=== PATIENT | male | born 1990 | race Caucasian/White ===

== ENCOUNTER 2022-09-20 15:05 | Outpatient (REF) | payer OTHER, SELFPAY ==
[2022-09-20 16:40] LABS: MANUAL DIFF FLAG NO
[2022-09-20 16:42] LABS: Basophils Percent Auto 0.5 % (0-2); Eosinophils Absolute Auto 0.2 X10*3/uL (0.0-0.4); Hemoglobin 16.3 g/dl (14.0-18.0); Imm Gran Abs Auto 0.07 X10*3/uL (0.00-0.03); Imm Gran Pct Auto 1.1 % (0.0-0.4); Lymphocytes Absolute Auto 1.8 X10*3/uL (1.2-4.9); Lymphocytes Percent Auto 26.7 % (20-40); Mean Corpuscular HGB Conc 33.3 g/dl (31.0-36.0); Mean Corpuscular Hemoglobin 29.4 pg (27.0-33.0); Mean Corpuscular Volume 88.4 fL (80.0-98.0); Mean Platelet Volume 10.9 fL (9.4-12.4); Monocytes Absolute Auto 0.5 X10*3/uL (0.1-1.2); Neutrophils Absolute Auto 4.1 x10*3/uL (2.0-8.3); Neutrophils Percent Auto 61.7 % (45-73); Platelet Count 176 X10*3/uL (160-400); Red Blood Count 5.54 X10*6/uL (4.60-5.80); Red Cell Distribution Width 12.7 % (11.0-16.0); White Blood Count 6.6 X10*3/uL (4.8-10.8)
[2022-09-20 16:54] LABS: Appearance Urine Clear; Color Urine Yellow; Glucose Urine UA Negative (Negative); Leukocyte Esterase Urine Negative (Negative); Nitrite Urine Negative (Negative); PH 6.5 (5.0-9.0); Urine Blood Negative (Negative); Urine Ketones Negative (Negative); Urine Protein Negative (Neg-Trace)
[2022-09-20 17:19] LABS: Alanine Aminotransferase 17 U/L (0-40); Albumin Level 4.6 g/dL (3.5-5.0); Alkaline Phosphatase 58 U/L (39-117); Anion Gap 11 (12-20); Aspartate Amino Transferase 15 U/L (5-37); Bilirubin Total 1.1 mg/dL (0.0-1.0); Blood Urea Nitrogen 10 mg/dL (9-16); Calcium 9.4 mg/dL (8.4-10.2); Carbon Dioxide 28 mmol/L (22-29); Chloride 101 mmol/L (96-108); Estimated Glomerular Filt Rate > 60; Glucose Fasting 80 mg/dL (60-99); Potassium 4.4 mmol/L (3.3-5.1); Sodium 136 mmol/L (135-145); TSH reflex Free T4 1.05 uIU/mL (0.32-4.0); Total Protein 7.1 g/dL (6.5-8.0); Uric Acid 6.5 mg/dL (3.4-7.0)
== END 2022-09-20 15:06 | disposition home or self-care (01) ==
LOC: HO.HMGCLDS 15:05
PROVIDERS: PCP Nurse Practitioner Family; Visit Provider Nurse Practitioner Family
DX: Z00.00 Encounter for general adult medical examination without abnormal findings (principal); M10.9 Gout, unspecified
CPT/HCPCS: 36415; 80053; 81003; 84443; 84550; 85025

== ENCOUNTER 2022-11-29 13:05 | Outpatient (REF) | payer OTHER, SELFPAY ==
[2022-11-29 14:28] LABS: Alanine Aminotransferase 18 U/L (0-40); Alkaline Phosphatase 62 U/L (39-117); Anion Gap 15 (12-20); Aspartate Amino Transferase 17 U/L (5-37); Bilirubin Total 1.3 mg/dL (0.0-1.0); Blood Urea Nitrogen 10 mg/dL (9-16); Calcium 9.8 mg/dL (8.4-10.2); Carbon Dioxide 28 mmol/L (22-29); Chloride 100 mmol/L (96-108); Estimated Glomerular Filt Rate > 60; Glucose Random 92 mg/dL (60-115); Potassium 4.2 mmol/L (3.3-5.1); Sodium 139 mmol/L (135-145); Total Protein 7.7 g/dL (6.5-8.0); Uric Acid 6.5 mg/dL (3.4-7.0)
== END 2022-11-29 13:06 | disposition home or self-care (01) ==
LOC: HO.HMGCLDS 13:05
PROVIDERS: PCP Nurse Practitioner Family; Visit Provider Nurse Practitioner Family
DX: M10.9 Gout, unspecified (principal)
CPT/HCPCS: 36415; 80053; 84550

== ENCOUNTER 2023-05-14 09:57 | Outpatient (AMB) | payer OTHER, SELFPAY ==
[2023-05-14 10:02] VITALS: BP 104/60; PULSE 58; RESP 16; TEMP 36.3; O2SAT 98; BMI 22.9
--- NOTE | 2023-05-14 10:02 | A.OFFVIS_ITS ---
Intake Vital Signs 05/14/23 10:02 Height 6 ft 4 in Weight 188 lb BMI 22.9 BP 104/60 Blood Pressure Location Rt brachial Position Sitting Respiration 16 Pulse 58 Pulse Source Pulse Oximeter Temp 97.3 F Temp Source Skin Pulse Oximetry (%) 98 Oxygen Delivery Method Room Air Intake Visit Reasons: Gout Intake Note: patient would like to obtain paperwork for Flight waiver. Allergies No Known Allergies Allergy (Verified 05/14/23 10:07) Medication List - Last Reconciled 05/14/23 by Brian Leon MD allopurinol (Zyloprim) 200 mg (2 x 100 mg) PO DAILY 30 days colchicine 0.6 mg PO DAILY PRN 5 days HPI HPI Comments History of Present Illness Details This is a 32-year-old male with a past medical history of gout who presents for gout evaluation. He is also requesting a flight Waiver. He had his 1st attack of gout back in July of 2019 after ankle pain and swelling which was treated with steroids. His uric acid levels were found to be elevated. He was started on allopurinol in 2020 and since then has not had any gout flares. There is no known family history of gout. He denies any history of kidney stones. Today patient feels great and denies any joint pain or swe lling. [facility] Social History Housing: Apartment Patient Tobacco Use Status: Never used Tobacco e-Cigarette/Vaping Use: Never Used Second Hand Smoke Exposure: No service: Yes Current occupational status: employed Current occupation: [employer] Current occupational exposures/hazards: Yes Cognitive needs: No Hearing needs: No Vision needs: No Review of Systems Const Reports no additional complaints Musc Denies arthralgias, Denies joint swelling, Denies limited range of motion and Denies stiffness Physical Exam Vital Signs: Last Vital Signs Temp 97.3 F 05/14/23 10:02 Pulse 58 05/14/23 10:02 Resp 16 05/14/23 10:02 BP 104/60 05/14/23 10:02 Pulse Ox 98 05/14/23 10:02 Oxygen Delivery Method Room Air 05/14/23 10:02 BMI result Body Mass Index 22.9 Const General: cooperative, healthy appearing and comfortable Nutritional Appearance: average body habitus Orientation/consciousness: patient oriented x3 Limitations: no limitations HEENT Other: No tophi noted on ears Head: Yes normocephalic and Yes atraumatic Mouth: moist mucous membranes Resp Effort & Inspection: normal respiratory effort and able to speak in complete sentences Cardio Rate: regular rate Rhythm: regular rhythm Neuro General: patient oriented x3 Extrem Other: No active synovitis No tophi noted on joints No swollen or painful joints. Normal range of motion of hands, elbows, shoulders, ankles, feet, knees Assessment & Plan Assessment & Plan (1) Gout: Code(s): M10.9 - Gout, unspecified Qualifiers: Gout site: ankle Gout etiology: idiopathic Chronicity: chronic Laterality: unspecified laterality Presence of tophus: without tophus Qualified Code(s): M1A.0790 - Idiopathic chronic gout, unspecified ankle and foot, without tophus (tophi) Plan: This is a 32-year-old male with a past medical history of gout who presents for gout evaluation. First attack of gout in 2018 which was treated with steroids. He was started on allopurinol in 2020 with no subsequent gout flares. Upon evaluation today patient has no swollen or tender joints. He is currently on allopurinol 200 mg daily and his uric acid level is 6.5 which is barely above target (<6.0 mg/dL) he has not had to use any colchicine for years. Continue allopurinol 200 mg daily Follow-up in 1 year Coding Level of Care Code New Pt Level 3 (29010) Diagnoses Gout M1A.0790 Gout site: ankle Gout etiology: idiopathic Chronicity: chronic Laterality: unspecified laterality Presence of tophus: without tophus
== END 2023-05-14 10:29 | disposition home or self-care (01) ==
PROVIDERS: PCP Nurse Practitioner Family; Referring Provider Nurse Practitioner Family; Visit Provider Student in an Organized Health Care Education/Training Program
DX: M1A.0790 Idiopathic chronic gout, unspecified ankle and foot, without tophus (tophi) (principal)
CPT/HCPCS: 99203

== ENCOUNTER → 2023-05-14 09:57 | Outpatient (BNVA) | payer OTHER, SELFPAY | PROVIDERS: PCP Nurse Practitioner Family; Referring Provider Nurse Practitioner Family; Visit Provider Student in an Organized Health Care Education/Training Program | DX: M1A.0790 Idiopathic chronic gout, unspecified ankle and foot, without tophus (tophi) (principal); Z79.899 Other long term (current) drug therapy | CPT/HCPCS: 99202 ==

== ENCOUNTER 2024-03-20 13:01 | Outpatient (AMB) | payer OTHER, SELFPAY ==
[2024-03-20 13:10] VITALS: BP 120/80; PULSE 97; TEMP 36.4; O2SAT 95; BMI 21.9
--- NOTE | 2024-03-20 13:10 | MHC.OFFWIV ---
Intake Vital Signs 03/20/24 13:10 Height 6 ft 4 in Weight 180 lb BMI 21.9 BP 120/80 Pulse 97 Pulse Source Pulse Oximeter Temp 97.6 F Temp Source Temporal Artery Scan Pulse Oximetry (%) 95 Oxygen Delivery Method Room Air Intake Visit Reasons: Sore throat head chest congestion Intake Note: pt is here today for sore throat head chest congestion started saturday Patient Tobacco Use Status: Never used Tobacco Allergies No Known Allergies Allergy (Verified 03/20/24 14:02) Do you need a note to return to daycare/school/sports/work: Yes HPI HPI Comments History of Present Illness Details Saturday ongoing symptoms He said ST has improved Ongoing cough, congestion, phlegm production + sinus congestion Slight ear pain No sick contacts Has tried OTC meds like dayquil, nyquil, tylenol Patient said subjective fever/chills + decreased appetite PFSH Social History Housing: Apartment Patient Tobacco Use Status: Never used Tobacco e-Cigarette/Vaping Use: Never Used Second Hand Smoke Exposure: No service: Yes Current occupational status: employed Current occupation: [employer] Current occupational exposures/hazards: Yes Cognitive needs: No Hearing needs: No Vision needs: No Review of Systems Const Reports chills and Reports fever(s) ENT Reports otalgia, Denies facial pain, Reports nasal discharge and Reports sore throat Card Denies chest pain and Denies dyspnea Resp Reports chest congestion, Reports cough and Denies dyspnea Physical Exam Vital Signs: Last Vital Signs Temp 97.6 F 03/20/24 13:10 Pulse 97 03/20/24 13:10 BP 120/80 03/20/24 13:10 Pulse Ox 95 03/20/24 13:10 Oxygen Delivery Method Room Air 03/20/24 13:10 BMI result Body Mass Index 21.9 General: Non-toxic, NAD. Speaking full sentences. Skin: Warm dry throughout Eye: EOMI HENT: Airway patent. Uvula midline. minimal pharyngeal erythema without exudates or edema. 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 Bilateral canals clear. TM non-erythematous, non-bulging. No TM perforation or hemotympanum noted. Respiratory: CTA bilaterally. No wheezes, rales or rhonchi Cardiac: RRR. No murmur MSK: Full ROM extremities. Neurology: A/O. No aphasia or facial droop. Gait without abnormality Psych: Good mood and affect Assessment & Plan Assessment & Plan (1) Upper respiratory infection: Code(s): J06.9 - Acute upper respiratory infection, unspecified Qualifiers: URI type: unspecified viral URI Qualified Code(s): J06.9 - Acute upper respiratory infection, unspecified Plan: Patient seen and evaluated. Lungs CTA Strep negative Discussed most likely viral URI and he will be prescribed tessalon. Discussed bacterial infection symptoms such as worsening cough, facial pressure, fever and to call back for antibiotic such as azithromycin if persistent F/U with PCP if needed Patient gave verbal understanding and had no additional questions or concerns at time of discharge All questions answered Coding Level of Care Code Est Pt Level 3 (28254) Diagnoses Viral upper respiratory tract infection J06.9 URI type: unspecified viral URI
== END 2024-03-20 15:16 | disposition home or self-care (01) ==
PROVIDERS: PCP Nurse Practitioner Family; Visit Provider Physician Assistant
DX: J06.9 Acute upper respiratory infection, unspecified (principal)
CPT/HCPCS: 99213

== ENCOUNTER 2024-05-14 10:26 | Outpatient (AMB) | payer OTHER, SELFPAY ==
--- NOTE | 2024-05-14 10:43 | MHC.OFFVIS ---
Vital Signs 05/14/24 10:47 Height 6 ft 4 in Weight 191 lb 5.78 oz BMI 23.3 BP 130/78 Blood Pressure Location Rt brachial Position Sitting Pulse 69 Pulse Source Pulse Oximeter Pulse Oximetry (%) 98 Oxygen Delivery Method Room Air Intake Visit Reasons: gout/cm Intake Note: Patient presents for Gout. Allergies No Known Allergies Allergy (Verified 05/14/24 10:46) Medication List - Last Reconciled 05/14/24 by Brian Leon MD allopurinol (Zyloprim) 200 mg (2 x 100 mg) PO DAILY 30 days colchicine 0.6 mg PO DAILY PRN 5 days HPI Comments Details: 33-year-old male with gout returns for follow-up. He states that he is doing very well overall. No musculoskeletal complaints. No gout flare-ups years. Has not used colchicine in years. He remains on allopurinol 200 mg daily but ran out 2 weeks ago. Initial history: This is a 32-year-old male with a past medical history of gout who presents for gout evaluation. He is also requesting a flight Waiver. He had his 1st attack of gout back in July of 2019 after ankle pain and swelling which was treated with steroids. His uric acid levels were found to be elevated. He was started on allopurinol in 2020 and since then has not had any gout flares. There is no known family history of gout. He denies any history of kidney stones. Today patient feels great and denies any joint pain or swelling. [facility] Social History Housing: Apartment Patient Tobacco Use Status: Never used Tobacco e-Cigarette/Vaping Use: Never Used Second Hand Smoke Exposure: No service: Yes Current occupational status: employed Current occupation: [employer] Current occupational exposures/hazards: Yes Cognitive needs: No Hearing needs: No Vision needs: No Review of Systems Const Reports no additional complaints Musc Denies arthralgias, Denies joint swelling, Denies limited range of motion and Denies stiffness Physical Exam Vital Signs: Last Vital Signs Pulse 69 05/14/24 10:47 BP 130/78 05/14/24 10:47 Pulse Ox 98 05/14/24 10:47 Oxygen Delivery Method Room Air 05/14/24 10:47 BMI result Body Mass Index 23.3 Const General: cooperative, healthy appearing and comfortable Nutritional Appearance: average body habitus Orientation/consciousness: patient oriented x3 Limitations: no limitations HEENT Other: No tophi noted on ears Head: Yes normocephalic and Yes atraumatic Mouth: moist mucous membranes Resp Effort & Inspection: normal respiratory effort and able to speak in complete sentences Cardio Rate: regular rate Rhythm: regular rhythm Neuro General: patient oriented x3 Extrem Other: No active synovitis No tophi noted on joints No swollen or painful joints. Normal range of motion of hands, elbows, shoulders, ankles, feet, knees Assessment & Plan Assessment & Plan (1) Gout: Comment: First attack of gout in 2019 which was treated with steroids. He was started on allopurinol in 2020 with no subsequent gout flares. Code(s): M10.9 - Gout, unspecified Category: Medical Qualifiers: Gout site: ankle Gout etiology: idiopathic Chronicity: chronic Laterality: unspecified laterality Presence of tophus: without tophus Qualified Code(s): M1A.0790 - Idiopathic chronic gout, unspecified ankle and foot, without tophus (tophi) Plan: This is a 33-year-old male with gout who presents for follow-up. Patient is doing very well on allopurinol 200 mg daily. No gout flare-ups since last visit. Has not used colchicine in years. Patient however ran out of his allopurinol two weeks ago. I refilled his allopurinol. Advised patient to do blood work in about 1 month time. If uric acid is elevated, will consider increasing his allopurinol to 300 mg daily Labs in about 1 month Labs before next visit in 1 year Plan I spent 15 minutes reviewing patient's chart, evaluating patient, ordering diagnostic workup, counseling patient and documenting in the chart Orders: Orders Basic Metabolic Panel 1 Month M1A.0790 - Idiopathic chronic gout, unspecified ankle and foot, without tophus (tophi) Uric Acid 1 Month M1A.0790 - Idiopathic chronic gout, unspecified ankle and foot, without tophus (tophi) Basic Metabolic Panel 1 Year M1A.0790 - Idiopathic chronic gout, unspecified ankle and foot, without tophus (tophi) Uric Acid 1 Year M1A.0790 - Idiopathic chronic gout, unspecified ankle and foot, without tophus (tophi) Medications: Refilled allopurinol (Zyloprim) 200 mg (2 x 100 mg) PO DAILY 30 days 60 tabs 5RF Coding Level of Care Code Est Pt Level 3 (04273) Diagnoses 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
[2024-05-14 10:47] VITALS: BP 130/78; PULSE 69; O2SAT 98; BMI 23.3
== END 2024-05-14 10:58 | disposition home or self-care (01) ==
PROVIDERS: PCP Nurse Practitioner Family; Visit Provider Student in an Organized Health Care Education/Training Program
DX: M1A.0790 Idiopathic chronic gout, unspecified ankle and foot, without tophus (tophi) (principal)
CPT/HCPCS: 99213

== ENCOUNTER → 2024-05-14 10:26 | Outpatient (BNVA) | payer OTHER, SELFPAY | PROVIDERS: PCP Nurse Practitioner Family; Visit Provider Student in an Organized Health Care Education/Training Program | DX: M1A.0790 Idiopathic chronic gout, unspecified ankle and foot, without tophus (tophi) (principal); Z56.82 Military deployment status | CPT/HCPCS: 99212 ==

== ENCOUNTER 2024-12-29 11:00 | Outpatient (AMB) | payer OTHER, SELFPAY ==
[2024-12-29 11:03] VITALS: BP 118/78; PULSE 78; TEMP 36.6; O2SAT 97; BMI 22.4
--- NOTE | 2024-12-29 11:03 | MHC.PC.OV ---
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 Accompanied by: Self / Same As Patient Allergies No Known Allergies Allergy (Verified 12/29/24 11:28) Medication List - Last Reconciled 12/29/24 by ELOISA RichP- allopurinol (Zyloprim) 200 mg (2 x 100 mg) PO DAILY 30 days colchicine 0.6 mg PO DAILY PRN 5 days Tobacco use date assessed: 12/29/24 Dental Screening Dental Screen Date: 12/29/24 Did you have a dental visit in the last 12 months?: Yes Did you have a dental problem in the last 6 months where you did not have access to dental care?: No Was dental information given to patient?: Patient has dentist HPI ANNUAL PE HPI Details History of Present Illness The patient is a 34-year-old male presenting with a wellness visit. He has a confirmed history of gout, currently managed with allopurinol. Due to insurance complications, he paused the medication for a month but reported no gout flare-ups during that time. He is back on his regular dosage. Additionally, he observed a bump in his rectal area with a possible. Denied any pain with defication, blood in stool, pain with defication. There is an absence of any concerning symptoms such as suicidal thoughts or gastrointestinal issues alongside this condition. Health Maintenance Social History Review of Systems - General: Denies any chest pain - Respiratory: Denies shortness of breath - Gastrointestinal: Denies nausea, vomiting, diarrhea, constipation - Psychiatric: Denies suicidal ideation and homicidal ideation Physical Exam General: Cooperative, healthy appearing, comfortable, no acute distress and well developed Orientation: Patient oriented x3 Limitations: No limitations Head: Normal to inspection, several moles noted on scalp, no irregular shaped or dark colored moles Ears: Hearing grossly normal bilaterally Nose: Normal external nose present Face and sinus: Normal facial exam Eyes: Appearance normal, both eyes and all related structures Neck: Normal visual inspection and Yes full ROM Respiratory: Normal respiratory effort and able to speak in complete sentences. Clear to auscultation bilaterally Cardiovascular: Regular rate and rhythm. Normal S1 and S2 GI: Normal to inspection. Soft to palpation and nontender. Linear white marking noted at inferior/6 o'clock position in rectal region, question anal fissure, but no bumps, lesions, signs of hemorrhoid activity. Skin: No rashes or lesions noted, few scattered singular moles noted on back Neuro: Patient oriented x3 Extremities: Normal to inspection Results Plan Monitoring of the anal fissure will continue, noting the absence of symptoms such as pain and bleeding. The patient will maintain his allopurinol regimen to manage gout. Vigilance regarding skin conditions, particularly the monitoring of moles, will be advised. A follow-up appointment is planned for one year to review these matters comprehensively. Discussion Notes I discussed with the patient the evaluation of the suspected anal fissure, emphasizing that, given the absence of symptoms, I would recommend continued observation. The management of gout, including the resumption of allopurinol, was reviewed, ensuring the patient understands the importance of consistent medication adherence. Furthermore, I instructed him to observe any changes in his moles and to bring any new developments to my attention. Arrangements for a follow-up visit in a year were made to reassess the current management plan and skin condition. Patient Instructions - Continue taking allopurinol as prescribed. - Observe for any changes in moles on the scalp and back. - Monitor the rectal area for any new symptoms such as pain or bleeding. - Return for follow-up in one year or sooner if new symptoms develop. [facility] Surgical History No pertinent past surgical history Social History Housing: Apartment Patient Tobacco Use Status: Never used Tobacco e-Cigarette/Vaping Use: Never Used Second Hand Smoke Exposure: No service: Yes Current occupational status: employed Current occupation: [employer] Current occupational exposures/hazards: Yes Cognitive needs: No Hearing needs: No Vision needs: No Questionnaire PHQ-9 Over the last 2 weeks, how often have you been bothered by any of the following problems? 1. Little interest or pleasure in doing things: not at all 2. Feeling down, depressed, or hopeless: not at all 3. Trouble falling or staying asleep, or sleeping too much: not at all 4. Feeling tired or having little energy: not at all 5. Poor appetite or overeating: not at all 6. Feeling bad about yourself - or that you are a failure or have let yourself or your family down: not at all 7. Trouble concentrating on things, such as reading the newspaper or watching television: not at all 8. Moving or speaking so slowly that other people could have noticed. Or the opposite - being so fidgety or restless that you have been moving around a lot more than usual: not at all 9. Thoughts that you would be better off or of hurting yourself in some way: not at all Total score: 0 Depression Screening Interpretation: Negative Depression Screening Done: Yes [id number] - PHQ-9 Billing: Yes Source: Developed by Drs. Frederick Burgess, Merced Gonzalez, Indra Gerber and colleagues, with an educational kishan from [employer]. Thrive Questionnaire Date Thrive assessed: 12/29/24 I am a: Patient What is your living situation today?: I have a steady place to live Within the past 12 months, did the food you bought not last and you didn't have the money to get more?: Never true Within the past 12 months, did you worry whether your food would run out before you got money to buy more?: Never true Do you have trouble paying for medicines?: No Do you have trouble getting transportation to medical appointments?: No Do you have trouble paying your heating and electricity bill?: No Do you have trouble taking care of your child, family member or friend?: No Do you have trouble with day-to-day activities such as bathing, preparing meals, shopping, managing finances, etc.?: No Are you currently unemployed and looking for a job?: No Are you interested in more education?: No Please select the resources that you would like help with: None Currently or been in a relationship where the following occur: No concerns reported THRIVE Score: 0 AUDIT C Alcohol Use Questionnaire (AUDIT-C) 1. How often do you have a drink containing alcohol?: Never 3. How often do you have six or more drinks on one occasion?: Never Total Score: 0 Score Reviewed/Action Taken: Yes LULY-7 AMB Questionnaire LULY-7 Date LULY - 7 assessed: 12/29/24 Feeling nervous, anxious, or on edge: 0 = Not at all Not being able to stop or control worryin = Not at all Worrying too much about different things: 0 = Not at all Trouble relaxin = Not at all Being so restless that it is hard to sit still: 0 = Not at all Becoming easily annoyed or irritable: 0 = Not at all Feeling afraid as if something awful might happen: 0 = Not at all Total LULY-7 score (0-4 normal; 5-9 mild; 10-14 moderate; 15-21 severe): 0 Source: Developed by Drs. Frederick Burgess, Merced Gonzalez, Indra Gerber and colleagues, with an educational kishan from [employer]. LULY-7 Assessment Billing LULY-7 Assessment Tool: LULY-7 Assessment 46728 Physical exam (Primary Care) Vital Signs: Last Vital Signs Temp 97.8 F 12/29/24 11:03 Pulse 78 12/29/24 11:03 BP 118/78 12/29/24 11:03 Pulse Ox 97 12/29/24 11:03 Oxygen Delivery Method Room Air 12/29/24 11:03 BMI result Body Mass Index 22.4 Tobacco/Smoking Status: Tobacco use Status Tobacco use date assessed 12/29/24 12/29/24 11:04 Patient Tobacco Use Status Never used Tobacco 12/29/24 11:04 e-Cigarette/Vaping Use Never Used 12/29/24 11:04 PHQ-9: PHQ-9 Score PHQ-9: Total score 0 12/29/24 11:10 Depression Screening Interpretation: Negative Thrive Assessment: Date of Thrive Assessment Date Thrive assessed 12/29/24 12/29/24 11:04 Currently or been in a relationship where the following occur: No concerns reported Coding Level of Care Code Est Pt Prev Care 18-39y(24790) Diagnoses Physical exam Z00.00 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 He was started on allopurinol in 2020 with no subsequent gout flares. Code(s): M10.9 - Gout, unspecified Category: Medical Qualifiers: Chronicity: chronic Gout etiology: idiopathic Gout site: ankle Laterality: unspecified laterality Presence of tophus: without tophus Qualified Code(s): M1A.0790 - Idiopathic chronic gout, unspecified ankle and foot, without tophus (tophi) (3) Anal fissure: Code(s): K60.2 - Anal fissure, unspecified Category: Medical Plan . Orders: Orders Comprehensive Cooper. Panel Fast Today Z00.00 - Encounter for general adult medical examination without abnormal findings Lipid Panel Today Z00.00 - Encounter for general adult medical examination without abnormal findings Uric Acid Today M1A.0790 - Idiopathic chronic gout, unspecified ankle and foot, without tophus (tophi) Complete Blood Count Auto Diff Today Z00.00 - Encounter for general adult medical examination without abnormal findings TSH reflex Free T4 Today Z00.00 - Encounter for general adult medical examination without abnormal findings UA CC w/rflx Micro + Cult Today Z00.00 - Encounter for general adult medical examination without abnormal findings
--- OUTSIDE RECORDS SUMMARY | 2024-12-29 13:34 | XMS_ITS | Continuity of Care Document ---
Author Name [facility] Organization [facility] Care Team Providers Care Yoke Presser Name Role Phone [facility] Unavailable Unavailable Problems Combined list of problems from Department of Defense and Veterans Affairs facilities. It does not include entries that were removed or entered in error. Problem Status Onset Date Problem Type Date of Resolution Comme nts Source closed fracture of carpal bone(s) scaphoid Active Condition [facility] Allergies, Adverse Reactions, Alerts Combined list of allergies from Department of Defense and Veterans Affairs facilities. It does not include entries that were removed or entered in error. Substance Category Reaction Severity Reaction type Status Date Reported Comments Source No Known Allergies Drug allergy (disorder) active 09/09/2014 [facility] [place] [address] Immunizations Combined list of available immunizations from the Department of Defense and Veterans Affairs facilities. Immunization Series Date Given Administered By Site Reaction Lot Number CVX Code Drug Product Assurance Engineer Status Comments Source typhoid vaccine, parenteral 2022 KAVYA Sim mariella, left (delt oid) [id number] sanofi pasteur complet ed typhoid vaccine, parentera l 08/21/23 Given [id number]-[id number] 39 AMDS influenza, injectable, quadrivalent- pf 2021 [id number] 150 GlaxoSmithKli ne complet ed influenza , injectabl e, quadrival ent-pf 08/25/22 Given Ambulat ory Pharmac y COVID Vaccine Pfizer 2020 [id number] PFIZER complet ed COVID Vaccine Pfizer 09/24/21 Given Ambulat ory Pharmac y influenza, injectable, quadrivalent- pf 2020 [id number] 150 GlaxoSmithKli ne complet ed influenza , injectabl e, quadrival ent-pf 09/24/21 Given Ambulat ory Pharmac y typhoid Vi capsular polysaccharid e vac 2020 [id number] 101 sanofi pasteur complet ed typhoid Vi capsular polysacch aride vac 07/23/21 Given Ambulat ory Pharmac y COVID Vaccine Moderna 2020 [id number] complet ed COVID Vaccine Moderna 12/25/20 Given Ambulat ory Pharmac y COVID Vaccine Moderna 2020 [id number] complet ed COVID Vaccine Moderna 11/15/20 Given Ambulat ory Pharmac y influenza virus vaccine, inactivated 2019 88 Seqirus complet ed influenza virus vaccine, inactivat ed 09/27/20 Given Ambulat ory Pharmac y influenza, seasonal, injectable 2019 [id number] Seqirus complet ed influenza , seasonal, injectabl e 09/27/20 Given Ambulat ory Pharmac y Influenza, injectable, MDCK, preservative free, quadrivalent 2019 [id number], () Not Given Influenza , injectabl e, MDCK, preservat daylin free, quadrival ent DoD influenza, injectable, quadrivalent- pf 2018 [id number] 150 Seqirus complet ed influenza , injectabl e, quadrival ent-pf 08/27/19 Given Ambulat ory Pharmac y meningococcal A,C,Y,W-135 (MCV4P) 2018 [id number] 114 sanofi pasteur complet ed meningoco ccal A,C,Y,W-1 35 (MCV4P) 08/27/19 Given Ambulat ory Pharmac y typhoid Vi capsular polysaccharid e vac 2018 [id number] 101 sanofi pasteur complet ed typhoid Vi capsular polysacch aride vac 08/21/19 Given Ambulat ory Pharmac y influenza, injectable, quadrivalent- pf 2017 [id number] 150 Seqirus complet ed influenza , injectabl e, quadrival ent-pf 08/11/18 Given Ambulat ory Pharmac y influenza virus vaccine, inactivated 2016 [id number] 88 Seqirus complet ed influenza virus vaccine, inactivat ed 07/13/17 Given Ambulat ory Pharmac y typhoid Vi capsular polysaccharid e vac 2016 [id number] 101 sanofi pasteur complet ed typhoid Vi capsular polysacch aride vac 07/13/17 Given Ambulat ory Pharmac y influenza, seasonal, injectable 2015 [id number] 141 [facility] influenza , seasonal, injectabl e 08/25/16 Given Ambulat ory Pharmac y influenza, seasonal, injectable-pf 2014 [id number] 140 CSL Behring complet ed influenza , seasonal, injectabl e-pf 08/11/15 Given Ambulat ory Pharmac y typhoid Vi capsular polysaccharid e vac 2014 [id number] 101 sanofi pasteur complet ed typhoid Vi capsular polysacch aride vac 07/30/15 Given Ambulat ory Pharmac y yellow fever vaccine 2014 [id number] sanofi pasteur complet ed yellow fever vaccine 07/30/15 Given Ambulat ory Pharmac y hepatitis A-hepatitis B vaccine 2014 [id number] 104 GlaxoSmithKli ne complet ed hepatitis A-hepatit is B vaccine 07/01/15 Given Ambulat ory Pharmac y hepatitis A-hepatitis B vaccine 2014 [id number] 104 GlaxoSmithKli ne complet ed hepatitis A-hepatit is B vaccine 07/01/15 Given Ambulat ory Pharmac y hepatitis A-hepatitis B vaccine 2014 [id number] 104 GlaxoSmithKli ne complet ed hepatitis A-hepatit is B vaccine 10/25/14 Given Ambulat ory Pharmac y hepatitis A and hepatitis B vaccine 1 2014 [id number] 104 SmithKline (SKB) complet ed hepatitis A and hepatitis B vaccine DoD hepatitis A-hepatitis B vaccine 2013 [id number] 104 GlaxoSmithKli ne complet ed hepatitis A-hepatit is B vaccine 09/08/14 Given Ambulat ory Pharmac y hepatitis A and hepatitis B vaccine 1 2013 [id number] 104 SmithKline (SKB) complet ed hepatitis A and hepatitis B vaccine DoD tuberculin purified protein derivative 2013 [id number] 96 sanofi pasteur complet ed tuberculi n purified protein derivativ e 09/03/14 Given Ambulat ory Pharmac y adenovirus vaccine, live 2013 [id number] 143 Teva Pharmaceutica ls complet ed adenoviru s vaccine, live 09/03/14 Given Ambulat ory Pharmac y influenza, seasonal, injectable-pf 2013 [id number] 140 Novartis Pharmaceutica ls complet ed influenza , seasonal, injectabl e-pf 09/03/14 Given Ambulat ory Pharmac y tetanus, diphtheria, acellular pertu is 2013 [id number] 115 GlaxoSmithKli ne complet ed tetanus, diphtheri a, acellular pertussis 09/03/14 Given Ambulat ory Pharmac y meningococcal A,C,Y,W-135 (MCV4P) 2013 [id number] 114 sanofi pasteur complet ed meningoco ccal A,C,Y,W-1 35 (MCV4P) 09/03/14 Given Ambulat ory Pharmac y poliovirus vaccine, inactivated 2013 [id number] 10 sanofi pasteur complet ed polioviru s vaccine, inactivat ed 09/03/14 Given Ambulat ory Pharmac y measles virus vaccine 0 2013 05 () Not Given measles virus vaccine DoD rubella virus vaccine 0 2013 06 () Not Given rubella virus vaccine DoD mumps virus vaccine 0 2013 07 () Not Given mumps virus vaccine DoD poliovirus vaccine, inactivated 1 2013 [id number] 10 Sanofi Pasteur (PMC) complet ed polioviru s vaccine, inactivat ed DoD varicella virus vaccine 0 2013 21 () Not Given varicella virus vaccine DoD meningococcal polysaccharid e (groups A, C, Y and W-135) diphtheria toxoid conjugate vaccine (MCV4P) 1 2013 [id number] 114 Sanofi Pasteur (PMC) complet ed meningoco ccal polysacch aride (groups A, C, Y and W-135) diphtheri a toxoid conjugate vaccine (MCV4P) DoD tetanus toxoid, reduced diphtheria toxoid, and acellular pertu is vaccine, adsorbed 1 2013 [id number] 115 SmithKline (SKB) complet ed tetanus toxoid, reduced diphtheri a toxoid, and acellular pertussis vaccine, adsorbed DoD Influenza, seasonal, injectable, preservative free 1 2013 [id number] 140 Novartis Pharmaceutica l Katie. (NOV) complet ed Influenza , seasonal, injectabl e, preservat daylin free DoD Adenovirus, type 4 and type 7, live, oral 1 2013 [id number] 7 143 [employer] [facility] (BRR) complet ed Adenoviru s, type 4 and type 7, live, oral DoD Results Combined list of recent chemistry, hematology and other laboratory results from Department of Defense and Veterans Affairs, ranging from 15 months to all on record, depending upon the facility. Order Name Results Value Reference Range Date Interpretation Specimen Comments Source Infectiou s Disease HIV-1/O/2 Non-Reac tive 1 (08/22/24 1:41 PM) 08/22 N Interpretiv e Data: INTERPRETAT ION: This method is a screening procedure for the detection of HIV p24 Antigen and Antibodies to HIV-1, including Group O, and/or HIV-2. NON-REACTIV E: HIV-1 antigen and HIV-1 / HIV-2 antibodies were not detected. No laboratory evidence of HIV infection. A negative test result does not exclude the possibility of exposure to or infection with HIV. HIV antibodies and/or p24 antigen may be undetectabl e in some stages of the infection and in some clinical conditions. If acute HIV infection is suspected, consider submitting another specimen to a reference laboratory for HIV-1 RNA. SCREEN REACTIVE - CONFIRMATIO N TO FOLLOW: Possible presence of HIV-1antibo dies, HIV-2 antibodies and/or HIV-1 p24 antigen. Specimen will reflex to the confirmatio n testing that fulfills the Center for Disease Control and Prevention' s HIV diagnostic algorithm. Refer to [facility] Lab Guide for additional information : [email or web address] x Testing performed by Maikol chamberlain 5600A-U MapHazardlySAM EPILAB Miscellan eous Sendouts Repository Sample Received (08/22/24 1:41 PM) 08/22 N 5600A-U SAFSAM EPILAB Encounters Combined list of: 1) Encounters from Department of Veterans Affairs facilities going backup to the last 18 months, not all VA inpatient encounters are included; 2) Encounters from the Department of Defense facilities going backup to 280 months. Location Location Details Encounter Type Encounter Number Reason For Visit Attending Provider ADM Date DC Date Status Disposition Source [facility] [place] [address](Opt ometry Clinic [facility]) OUTPATIENT [id number] MARY VILLEGAS 09/08 Released w/o Limitations [facility] [place] [address](O ptometr y Clinic [facility]) [facility] [place] [address]([facility]ly [facility]) OUTPATIENT [id number] Notes Entered by: Basilio SANDERS 09 Sep 2014 0710 ------- ------- ------- ------- -- Strep Prophyl axis ADIN SANDERS 09/09 Released w/o Limitations [facility] [place] [address]([facility], [place] [address]([facility], [facility] OUTPATIENT [id number] [facility] Nutriti on EV Ramires 11/03 Released w/o Limitations [facility] [place] [address](N utritio nal Medicin e, [facility]) [facility] [place] [address]([facility] Medicine [facility]) OUTPATIENT [id number] R wrist pain x 1 week KIKA ANDERSON 03/09 Released w/o Limitations [place] [address] [place] [address](Or hotic Svcs, [facility]) OUTPATIENT [id number] GAY OAKLEY 03/09 Released w/o Limitations [facility] [place] [address](O rthotic Svcs, [facility]) [facility] [place] [address]([facility]) OUTPATIENT [id number] follow up AURA SMALL 03/21 Released with Work/Duty Limitations [facility] [place] [address]([facility] [place] [address](Ort hopedics, [facility]) TELE CONSULT [id number] ZOE TIRADO 03/24 [facility] [place] [address](O rthoped ics, [facility]) [facility] [place] [address](Ort hopedics, [facility]) OUTPATIENT [id number] CLOSED FRACTUR E OF CARPAL BONE(S) - SCAPHOI D; okd per Moise [id number] CHARLEEN MILLER 03/25 Released with Work/Duty Limitations [facility] [place] [address](O rthoped [facility], [facility]) [facility] [place] [address]([facility]) OUTPATIENT [id number] Notes Entered by: SUHAIL LOUIS 25 Mar 2015 1027 ------- ------- ------- ------- -- follow up from lena powell JODIE K 03/25 Released with Work/Duty Limitations [facility] [place] [address]([facility] Flight Medicin e Dom, [facility] d) [place] [address]([facility], [facility]) TELE CONSULT [id number] Notes Entered by: ALPESH BENNETT 31 Mar 2015 1529 ------- ------- ------- ------- -- SrMsgt. Izzy Duran, MED POC wants to know why CHARLEEN MILLER 03/31 [facility] [place] [address](O rthoped [facility], [facility]) 0310C [address] [employer] [employer] Between Visit [id number] 07/07 Discharge Disposition: Home or Self Care 0C--C-t h [employer] [employer] 8344R-439 AMDS Care Not Rendered [id number] 08/22 Discharge Disposition: Home or Self Care 8344R-4 39 AMDS 8344R-439 AMDS Outpatient [id number] EDMUND JOELLE 08/22 Discharge Disposition: Home or Self Care 8344R-4 39 AMDS 8344R-439 AMDS Between Visit [id number] 11/03 Discharge Disposition: Home or Self Care 8344R-4 39 AMDS Procedures Combined list of: 1) Procedures from Department of Veterans Affairs facilities going back up to thelast 18 months, not all VA non-surgical procedures are included; 2) All procedures from the Department of Defense facilities. Procedure Procedure Type Code Date Perfomer Comments Sourlm e No data available for this section Ambul[facility] ry Pharmacy Special casting material (e.g., fibergla ) 03/25/20 15 CHARLEEN MADRID Orthopedic Casting Long Arm Orthopedic Casting Long Arm 98462 03/25/20 15 CHARLEEN MADRID thumb spica cast [facility] Wrist hand orthosis, wrist extension control cock-up, non molded, prefabricated, [id number] 03/09/20 15 GAY OAKLEY [facility] Crime Scene Investigator Educ Orthotics Training Each Additional 15 Minutes 03/09/20 15 GAY OAKLEY Medical Nutrition Therapy Group (2 or More Individuals) Each 30 Minutes Medical Nutrition Therapy Group (2 or More Individuals) Each 30 Minutes [id number] 11/03/19 15 EV MUÑOZ Screening Test Of Visual Acuity, Quantitative, Bilateral Screening Test Of Visual Acuity, Quantitative, Bilateral 44841 09/08/20 14 RIO GARCIA [facility] Fitting Monofocal Except For Aphakia [facility] Fitting Monofocal Except For Aphakia 05850 09/08/20 14 RIO GARCIA SPECIAL CASTING MATERIAL (E.G., FIBERGLASS) 03/25/20 15 [facility] WRIST HAND ORTHOSIS, WRIST EXTENSION CONTROL COCK-UP, NON MOLDED, PREFABRICATED, [id number] 03/09/20 15 [facility] MEDICAL NUTRITION THERAPY; GROUP (2 OR MORE INDIVIDUAL(S)), EACH 30 MINUTES 11/02/19 15 [facility] THERAPEUTIC, PROPHYLACTIC, OR DIAGNOSTIC INJECTION (SPECIFY SUBSTANCE OR DRUG); SUBCUTANEOUS OR INTRAMUSCULAR 09/09/20 14 [facility] SCREENING TEST OF VISUAL ACUITY, QUANTITATIVE, BILATERAL 09/08/20 14 [facility] Social History Combined list of available smoking, tobacco, and other social history from Department of Defense and Veterans Affairs facilities. Social History Type Response Date Comment Sourc e Sex Representation Male 11/01/2022 Unknow n Organization Sexual Orientation Amb[facility] tory Pharmacy Gender identity Ambulator [facility] Pharmacy This section is an empty soc ial history section. DoD Assessment and Plan Combined list of future care activities from Department of Defense and Veterans Affairs facilities (e.g., assessment and plan notes, appointments, orders, and referrals). Additional future care activities may be listed in the Plan of Care section. Result Assessment and Plan Date Source Assessment and Plan Extracted from:Title : Fly PHA Author: JORGE BROWN Date: 08/22/24 mbr came in for appt Addendum by MARGE MUELLER V on August 22, 2024 14:33 EDT History of Refractive Surgery- No?Contact Lenses- Yes?Enrolled in Contact Lens Program- N/A?Gas Mask Inserts ordered- Yes?Current SRX on file- Yes [facility] (uncorrected) OD: 20/200 OS:?20/200 [facility] (Corrected) OD: 20/20 OS: 20/20 [facility] (uncorrected) OD: 20/20 OS: 20/20 [facility] (Corrected) OD: 20/20 OS: 20/20 Phorias: ESO 0__ EXO _3__ RH _0__ LH _0__ Depth Perception Corrected?Pass through _F__ IOP OD: 13 OS: 16 Time:?1421 Optometry findings meet standards- Yes Addendum by ROBERTO AHUJA on August 22, 2024 15:49 EDT ?Vitals: Blood Pressure:???139/84 Heart Rate:78 Height:76 Weight:190lbs BMI: Medications: ?Allopurinol - 200mg. by mouth once daily. Chronic Problems: ?gout 507: _ Comments: Addendum by EDMUND NICHOLS MD on August 22, 2024 16:32 EDT Chief Complaint: Member here for annual fly PHA. Patient is able to complete duties required by [employer]. No acute complaints.Waiver for:gout Initial Waiver Date:01/14/23 Waiver Exp Date:???01/18/26 FILIBERTO?varun. Test results reviewed: Audio: Audiogram H-1, no asymmetric hearing loss, no significant threshhold shift Optometry:Meets vision standards for: Near and distant visual acuity, IOP, Depth perception, Phorias EKG:?Not Required PHYSICAL EXAM: HEENT:?Normal Valsalva:?Normal Joints:?Normal Spine:Normal Skin:Normal Neuro:?Normal Lungs:?Normal Heart:?Normal Abdomen:?Normal Comments: ?ANNUAL PERIODIC HEALTH ASSESSMENT I. 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 Last Name: CAMERON 2. First Name: HALLIE 3. Middle Name: ANIYAH 4. Assessment Date: 5. : 6. Age: 33 7. Gender: M 8. DoD ID Number: [id number] 9. Service Branch: [employer] 10. 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 Unit Name: [address] [employer] FT 14. Duty Station/Location: [place] 15. UIC: [id number] 16. Is this your first Periodic Health Assessment (PHA)?: N 17. Are you enrolled in a secure messaging system with your health care provider?: 18. Current contact information: Preferred Method: Day Time Phone DSN: [id number] Day Time Phone: [phone] Night Time Phone: [phone] Email 1: [email or web address] Email 2: Address: [address] [place] [address] City: [place] State: [place] Zip Code: [address] 19. Point of contact who can always reach you: Name: Phyllis Echavarriamers Phone 1: [phone] Phone 2: EMAIL: Address: City: State: Zip Code: II. DEPLOYMENT INFORMATION (DEP) 1. [ 0 ] Total number of deployments in the PAST 5 YEARS 4. [ N ] Are you going to deploy within the NEXT 120 DAYS? III. 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 [ Yes ] Does your specialty require an operational duty physical exam? 4. [ No ] Are you currently enrolled in a medical surveillance/occupational health program?: No IV. MEDICAL CONDITIONS (JESÚS): 1. Since your last PHA, have you experienced any of the following health conditions, and if so, what is your status? [ ] Conditions with no medical care [ ] Conditions with medical care, but no longer under treatment [ ] Conditions with medical care, and NOW under treatment 2. Since your last PHA, have you experienced any of the following health conditions, and if so, what is your status? [ ] Conditions with no medical care [ ] Conditions with medical care, but no longer under treatment [ ] Conditions with medical care, and NOW under treatment 3. For any condition marked YES in question 1 or 2, are you currently on any profile or limited duty for that condition? [ ] Conditions 4. [ No ] Have you been based or stationed at a location where an open burn pit was used? 5. [ No ] Have you been exposed to toxic airborne chemicals or other airborne contaminants? 8. Have you had any surgery since your last PHA?: No 10.a. [ No ] Since your last PHA, has a health care provider recommended surgery(s) that you have not had? 11.a. [ No ] Do you currently require hearing aids, special medical supplies, CPAP, adaptive equipment, assistive technology devices, and/or other special accommodations? 12.a. [ No ] Do you have a waiver or profile for any part of your Service's physical fitness test? 13.a. [ No ] Do you have any problems wearing a gas mask, ballistic helmet, body armor, and/or chemical/biological protective garments? 14.a. [ No ] Have you ever been told by a health care provider that you SHOULD NOT receive an immunization for medical reasons? 15.a. [ No ] Do you have a permanent profile or an Assignment Limitation Code C? 16.a. [ No ] Are you on a temporary profile or limited duty? 17. [ 0 ] During the PAST 2 years, how many times have you been placed on a temporary profile or on limited duty? V. INDIVIDUAL MEDICAL READINESS (IMR) 1. [ No ] Do you have any allergies? 3. [ Not required ] Do you have red medical warning dog tags? 4. [ Yes ] Do you wear corrective lenses? 5. [ 1 ] How many pairs of glasses do you have? 6. [ No ] Do you have gas mask inserts? . BEHAVIORAL HEALTH (MHA) 1. a. [ other: other: Seeking therapy for anxiety awaiting appointments other: Seeking therapy for anxiety awaiting appointments ] Over the PAST MONTH, what major life stressors have you experienced that are a cause of significant concern or make it difficult for you to do your work, take care of things at home, or get along with other people (for example, serious conflicts with others, relationship problems, or a legal, disciplinary or financial problem)? 1. b. [ Yes ] Are you currently in treatment or getting professional help for this concern? 2. a. [ No ] In the PAST YEAR did you receive care for any mental health condition or concern such as, but not limited to post traumatic stress disorder (PTSD), depression, anxiety disorder, alcohol abuse or substance abuse? 3. [ None ] What prescription or over-the counter medications (including herbals/supplements) for sleep, pain, combat stress, or a mental health problem are you CURRENTLY taking? 4. a. [ No ] In the past 12 months, have you gambled? 5. a. [ Never ] How often do you have a drink containing alcohol? 6. Have you ever had any experience that was so frightening, horrible, or upsetting that in the PAST MONTH, you: 6. a. [ No ] Have had nightmares about it or thought about it when you did not want to? 6. b. [ No ] Tried hard not to think about it or went out of your way to avoid situations that remind you of it? 6. c. [ No ] Were constantly on guard, watchful or easily startled? 6. d. [ No ] [place] numb or detached from others, activities, or your surroundings? 6. e. [ Not answered ] [place] guilt or unable to stop blaming yourself or others for the event(s) or any problems the event(s) may have caused? 7. Over the LAST 2 WEEKS, how often have you been bothered by the following problems? 7. a. [ Few or several days ] Little interest or pleasure in doing things 7. b. [ Few or several days ] Feeling down, depressed, or hopeless 8. [ Yes ] Would you like to schedule an appointment with a health care provider to discuss any health concern(s)? 9. [ Yes ] Are you interested in receiving information or assistance for a stress, emotional or alcohol concern? 10. [ No ] Are you interested in receiving assistance for a family or relationship concern? 11. [ No ] Would you like to schedule a visit with a revolving inventory clerk, mental health care provider, or a community support counselor? VII. FAMILY HISTORY AND LIFESTYLE (LIF) 1. [ Very Good ] Overall, how would you rate your health during the PAST MONTH? 2. [ Canc ] Member indicates that family members have the following problems 3. The following family members has/had a history of cancer: Skin: Grandfather 6. [ Yes ] I participate in moderate intensity physical activites at least 2.5 hours, or a combination of moderate and vigorous aerobic activites, for at least 75 minutes per week. 7. In a typical week, I do physical activities specifically designed to STRENGTHEN my muscles: [ 3 ] Day(s) per week 8. [ None ] What prescriptions or kjie-kir-fvhdvwv medications are you CURRENTLY taking for health problems on a ROUTINE BASIS? 9. Which of the following products have you taken since your last PHA: None of the above 11. Think about the PAST 30 DAYS. How often did you eat/drink the following foods/beverages? [ 1 serving per day ] Fruits [ 2 servings per day ] Vegetables [ 1 serving per day ] Starchy Vegetables [ 1 serving per day ] Whole Grains [ 3 to 6 servings per week ] Dairy and Calcium Containing Foods [ 1 or 2 servings per week ] Fish [ 3 to 6 servings per week ] Lean Protein [ Rarely or Never ] Sugar-Sweetened Beverages 12. [ No ] Have you had a cholesterol check by a health care giver within the PAST 5 YEARS? 13.a. In the PAST 30 DAYS, which of the following products have you used on at least one day? None 15. Which of the following best describes your past tobacco use? I have never used tobacco products. 16. [ No ] Are you regularly exposed to secondhand smoke? 17. [ 5 to less than 7 hours ] During the LAST 2 WEEKS, how many hours of sleep did you get on most days? 18. [ No ] During the LAST 2 WEEKS, have you felt impaired or unable to adequately perform due to sleepiness or poor quality sleep? 19. [ No ] Have you had any unexplained weight loss or gain since your last PHA? 20. Member is not at risk for sexually transmitted infections. 22. Since your last PHA, what, if anything, have you and your partner used to keep from getting ? [ Condoms ] I am actively taking steps to prevent , including 23. [ No ] In the last year, have you or your partner had a scare, where you were not trying to get but were worried enough to use a home test? IX. RESERVE COMPONENT (RES) 1. [ No ] Do you have an injury, illness, Or disease which was incurred or aggravated while in a duty status since your last PHA? 4. [ Yes - ] Are you currently coverered under a health insurance policy? 5.a. [No, I have never applied for Worker's Compensation ] Do you have any current physical or mental health limitations related to a Worker's Compensation claim? 6. [ No ] Have you applied for or have you received a VA disability rating? X. OTHER MEDICAL (OTH) 1. [ 0 ] Rate the amount of pain you have had, on average, over the PAST 24 HOURS 3. [ No ] Since your last PHA, have you received care or treatment for any medical and/or mental health condition(s) from a civilian or non- facility? 5. Member acknowledged responsibility for reporting health issues. 7. [ No ] Woud you like to schedule an appointment with a health care provider to discuss any health concerns? XI. SEPARATION AND SENIOR LIVING 1. [ No ] Are you planning to separate or retire within the next year from Active Duty or [place] Duty (activated for greater than 30 continuous days) OR do you intend to file a claim for disability compensation with the Veterans Benefits Administration? PART B. RECORD REVIEW AND RECOMMENDATIONS I. RECORD REVIEWER INFORMATION 1. Last Name: DILMA 2. First Name: BPIIN 3. Middle Name: 4. Service Branch: [employer] 5. 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 Title: Medic/Compressor Station Engineer Chief/Closing Coordinator 7. EMAIL: [email or web address] 8. Facility: [address] 9. Unit: [address] 10. Address: [facility] [address] [place] 11. State: [place] 12. Zip Code: [address] 13. Phone: [phone] 14. Date Record Review: II. MEDICAL SCREENING 1. [ ] Date of merchandise flow team member's most recent PHA 2. [ 6 feet 2 inches Date: ] merchandise flow team member's most recently documented height 3. [ 185 pounds Date: ] merchandise flow team member's most recently documented weight 4. [ 129/79 Date: ] merchandise flow team member's most recently documented blood pressure reading 5. [ No ] Does the merchandise flow team member have a history of abnormal blood pressure since their last PHA? 6. [ Yes ] Does the merchandise flow team member have a laboratory test of sickle cell trait documented in their permanent medical record? 7. [ No Cholesterol Test Documented ] What is the date of the merchandise flow team member's most recently documented cholesterol test? 9. [ No Active Medications Documented ] List of merchandise flow team member's active medications listed in their permanent medical record 10. [ No ] Is there a discrepancy between the active medication record review and the merchandise flow team member's self-reported list of medications? 11. [ No Outside Care Documented ] List documented significant care the merchandise flow team member has received since their last PHA from a provider OUTSIDE the Health System 12. [ No ] Is there a discrepancy between the merchandise flow team member's list of OUTSIDE care (from OTH5), and the OUTSIDE care found in the record? 13. [ No Inside Care Documented ] List documented significant care the merchandise flow team member has received since their last PHA from a provider INSIDE the Health System 15. [ Not Answered ] Confirm that vaccine exemptions are listed in the medical record for each vaccine listed III. OCCUPATION-SPECIFIC EXAMINATIONS 1. [ ] When was the merchandise flow team member's most recently documented special operational duty physical exam? IV. FAMILY HISTORY AND LIFESTYLE 1. [ Yes ] Does the AA3844 reflect the merchandise flow team member's reported family history? VII. INDIVIDUAL MEDICAL READINESS 1. [ No ] Does the merchandise flow team member have an Assignment Limitation Code C? 3. [ Classification: 2 ] Most recently documented dental exam 4. [ Yes ] Is the merchandise flow team member current on all required immunizations in the immunization tracking system? 5. [ Yes ] Is the merchandise flow team member current with Service-specific requirements for glasses and gas mask inserts? 6. Does the merchandise flow team member have the following laboratory tests documented in their permanent medical record? [ Yes ] HIV test within the PAST 24 months [ Yes ] G6PD results on file [ Yes ] Blood type and Rh on file [ Yes ] DNA test on file IX. ADDITIONAL RECORD REVIEWER COMMENTS 1. This record review does NOT have a need for provider notification or referral.2. Additional comments about this record review that need to be forwarded to the Health Medical Technologist Blood Bank completing PART C: Member is currently seeking professional help for anxiety and is awaiting an appointment. No deployment within the past five years. No VA rating. Member is not currently on a temporary profile. Member reports very good health. Member has never used tobacco products. Member is not currently taking prescription or ffgk-oiv-yfhjoqv medications. Pain level: 0. No other significant findings. JLV reviewed. No other discrepancies found. Date Record Review Completed: PART C. HEALTH CARE PROVIDER I. MENTAL HEALTH ASSESSMENT (MHA) PROVIDER INFORMATION 1. Last Name: TREY 2. First Name: EDMUND 3. Middle Name: 4. Service Branch: [employer] 5. 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 Title: Physician (DO ROSHNI) 7. EMAIL: [email or web address] 8. Facility: [facility] 9. Unit: [address] [place], [place] [address] 10. Address: [address] [place] [address] 11. State: [place] 12. Zip Code: [address] 13. Phone: [phone] 14. Date HCP Review initiated: 1. Member marked that they have a concern or a difficulty with a major life stressor: other: other: Seeking therapy for anxiety awaiting appointments Additional info: Referral is not indicated because the member already has a referral. 2. Address concerns identified on member questions 2 and 3. History of mental health care: N/A Member's response: Provider's comments: member will talk with [facility] Medications: N/A Member's response: Provider's comments: 3. Member's AUDIT-C screening score was 0. (nothing required) 4. Member did not elias yes on two or more of questions 6a through 6e. 5. Member did not elias More than half the days or nearly every day on question 7a or 7b. 6. Suicide risk evaluation. 6. a. Ask: Over the past month, have you wished you were or wished you could go to sleep and not wake up?: No 6. b. Ask: Have you actually had any thoughts of killing yourself?: No 6. f. 1. Ask: In you lifetime, have you done anything, started to do anything, or prepared to do anything to end your life?: No 6. g. Further risk assessment comments: minor concerns about finances 7. Member states that they have not had thoughts or concerns over the past month that they might hurt or lose control with someone. 9. Summary of Provider's identified concerns needing referrals: None 11. Comments: 12. 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 Behavioral Health): Request medical appointment: member will talk with [facility] Request information on stress/emotional/alcohol: member will talk with [facility] 13. Supplemental services recommended/information provided: [facility] Date MHA Certified: III. PERIODIC HEALTH ASSESSMENT (PHA) PROVIDER INFORMATION 1. Last Name: TREY 2. First Name: EDMUND 3. Middle Name: 4. Service Branch: [employer] 5. 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 Title: Physician (DO ROSHNI) 7. EMAIL: [email or web address] 8. Facility: [address] 9. Unit: [facility] 10. Address: [address] [place] [address] 11. State: [place] 12. Zip Code: [address] 13. Phone: [phone] 14. Date HCP Review initiated: IV. PERIODIC HEALTH ASSESSMENT PROVIDER RECOMMENDATIONS and REFERRALS 1. Provider concerns with this assessment: No issues or concerns identified V. SUMMARY AND COMMENTS 1. Additional information summarizing findings during the merchandise flow team member assessment: 2. Provider Comments: stable gout, taking allopurinol . INDIVIDUAL MEDICAL READINESS DISPOSITION DETERMINATION JESÚS: Ready DEN: Ready IMM: Ready LAB: Ready ME: Ready IMR Status: Fully Medically Ready VII. SERVICE MEDICAL DEPLOYABILITY EVALUATION INDICATED Based on your review of all documentation, is the merchandise flow team member medically deployable without limitations? Reference Nikki 6490.07 Yes (merchandise flow team member DOES NOT currently have a medical condition that limits deployability) Date PHA Completed: END OF OD3199 REPORT Impression: Meets?FCIII?medical standards per HUNTER 48-123/MSD. Aeromedical Disposition: No DNIF. DD 2992?signed. No AF469 changes based on this encounter. World-[employer]ide Qualified. Extracted from:Title: Fly PHA / MHA Author: JORGE BROWN Date: 09/21/23 mbr came in for appt Addendum by MARGE MUELLER V on September 21, 2023 10:31 EST History of Refractive Surgery- No?Contact Lenses- N/A?Enrolled in Contact Lens Program- N/A?Gas Mask Inserts ordered- No?Current SRX on file- No DVA (uncorrected) OD: 20/20 OS:?20/20 NVA (uncorrected) OD: 20/20 OS: 20/20 Phorias: ESO _0_ EXO _1__ RH _0.5__ LH _0__ Depth Perception Uncorrected?Pass through __F_ IOP OD: 14 OS: 14 Time:?1031 Optometry findings meet standards- Yes Addendum by MAURISIO MURRY on September 21, 2023 11:29 EST ?Vitals: Blood Pressure:???129/79 Heart Rate: 79 Height: 193.04 Weight: 86.18 BMI: 23.12 Medications: Chronic Problems: SF 507: _ Comments: Addendum by IVETH PANDA MD on September 21, 2023 13:55 EST Chief Complaint: Member here for annual fly PHA. Patient is able to complete duties required by [employer]. No acute complaints.NO: Fly?waiver. Initial Waiver Date: Waiver Exp Date: ?. Test results reviewed: Audio: Audiogram H-1, no asymmetric hearing loss, no significant threshhold shift Optometry:Meets vision standards for: Near and distant visual acuity, IOP, Depth perception, Phorias EKG:?_ PHYSICAL EXAM: HEENT:?Normal Valsalva:?Normal Joints:?Normal Spine:Normal Skin:Normal Neuro:?Normal Lungs:?Normal Heart:?Normal Abdomen:?Normal Comments: ANNUAL PERIODIC HEALTH ASSESSMENT I. SUPERVISOR GLUING INFORMATION AND DEMOGRAPHICS ([facility]) 1. Last Name: CAMERON 2. First Name: HALLIE 3. Middle Name: ANIYAH 4. Assessment Date: 5. : 6. Age: 32 7. Gender: M 8. [employer] ID Number: [id number] 9. Service Branch: [employer] 10. 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 Unit Name: [address] 14. Duty Station/Location: [place] 15. C: [id number] 16. Is this your first Periodic Health Assessment (PHA)?: N 17. Are you enrolled in a secure messaging system with your health care provider?: 18. Current contact information: Preferred Method: Day Time Phone DSN: [id number] Day Time Phone: [phone] Night Time Phone: [phone] Email 1: [email or web address] Email 2: Address: [address] City: [place] State: [place] Zip Code: [address] 19. Point of contact who can always reach you: Name: Manolo Barnes Phone 1: [phone] Phone 2: EMAIL: Address: City: State: Zip Code: II. DEPLOYMENT INFORMATION (DEP) 1. [ 0 ] Total number of deployments in the PAST 5 YEARS 4. [ N ] Are you going to deploy within the NEXT 120 DAYS? III. OCCUPATIONAL INFORMATION (OCC) 1 [ [id number] ] What is your occupational code 2. [ not enough room here ] Describe your typical duty 3. [ Yes ] Does your specialty require an operational duty physical exam? 4. [ No ] Are you currently enrolled in a medical surveillance/occupational health program?: No IV. MEDICAL CONDITIONS (JESÚS): 1. Since your last PHA, have you experienced any of the following health conditions, and if so, what is your status? [ ] Conditions with no medical care [ ] Conditions with medical care, but no longer under treatment [ ] Conditions with medical care, and NOW under treatment 2. Since your last PHA, have you experienced any of the following health conditions, and if so, what is your status? [ ] Conditions with no medical care [ ] Conditions with medical care, but no longer under treatment [ ] Conditions with medical care, and NOW under treatment 3. For any condition marked YES in question 1 or 2, are you currently on any profile or limited duty for that condition? [ ] Conditions 4. [ No ] Have you been based or stationed at a location where an open burn pit was used? 5. [ No ] Have you been exposed to toxic airborne chemicals or other airborne contaminants? 8. Have you had any surgery since your last PHA?: No 10.a. [ No ] Since your last PHA, has a health care provider recommended surgery(s) that you have not had? 11.a. [ No ] Do you currently require hearing aids, special medical supplies, CPAP, adaptive equipment, assistive technology devices, and/or other special accommodations? 12.a. [ No ] Do you have a waiver or profile for any part of your Service's physical fitness test? 13.a. [ No ] Do you have any problems wearing a gas mask, ballistic helmet, body armor, and/or chemical/biological protective garments? 14.a. [ No ] Have you ever been told by a health care provider that you SHOULD NOT receive an immunization for medical reasons? 15.a. [ No ] Do you have a permanent profile or an Assignment Limitation Code C? 16.a. [ No ] Are you on a temporary profile or limited duty? 17. [ 0 ] During the PAST 2 years, how many times have you been placed on a temporary profile or on limited duty? V. INDIVIDUAL MEDICAL READINESS (IMR) 1. [ No ] Do you have any allergies? 3. [ Not required ] Do you have red medical warning dog tags? 4. [ Yes ] Do you wear corrective lenses? 5. [ 2 or more ] How many pairs of glasses do you have? 6. [ Yes ] Do you have gas mask inserts? . BEHAVIORAL HEALTH (MHA) 1. a. [ None ] Over the PAST MONTH, what major life stressors have you experienced that are a cause of significant concern or make it difficult for you to do your work, take care of things at home, or get along with other people (for example, serious conflicts with others, relationship problems, or a legal, disciplinary or financial problem)? 2. a. [ No ] In the PAST YEAR did you receive care for any mental health condition or concern such as, but not limited to post traumatic stress disorder (PTSD), depression, anxiety disorder, alcohol abuse or substance abuse? 3. [ None ] What prescription or over-the counter medications (including herbals/supplements) for sleep, pain, combat stress, or a mental health problem are you CURRENTLY taking? 4. a. [ No ] In the past 12 months, have you gambled? 5. a. [ Never ] How often do you have a drink containing alcohol? 6. Have you ever had any experience that was so frightening, horrible, or upsetting that in the PAST MONTH, you: 6. a. [ No ] Have had nightmares about it or thought about it when you did not want to? 6. b. [ No ] Tried hard not to think about it or went out of your way to avoid situations that remind you of it? 6. c. [ No ] Were constantly on guard, watchful or easily startled? 6. d. [ No ] [place] numb or detached from others, activities, or your surroundings? 6. e. [ Not answered ] [place] guilt or unable to stop blaming yourself or others for the event(s) or any problems the event(s) may have caused? 7. Over the LAST 2 WEEKS, how often have you been bothered by the following problems? 7. a. [ Not at all ] Little interest or pleasure in doing things 7. b. [ Not at all ] Feeling down, depressed, or hopeless 8. [ No ] Would you like to schedule an appointment with a health care provider to discuss any health concern(s)? 9. [ No ] Are you interested in receiving information or assistance for a stress, emotional or alcohol concern? 10. [ No ] Are you interested in receiving assistance for a family or relationship concern? 11. [ No ] Would you like to schedule a visit with a revolving inventory clerk, mental health care provider, or a community support counselor? VII. FAMILY HISTORY AND LIFESTYLE (LIF) 1. [ Excellent ] Overall, how would you rate your health during the PAST MONTH? 2. [ Canc ] Member indicates that family members have the following problems 3. The following family members has/had a history of cancer: Skin: Grandfather 6. [ Yes ] I participate in moderate intensity physical activites at least 2.5 hours, or a combination of moderate and vigorous aerobic activites, for at least 75 minutes per week. 7. In a typical week, I do physical activities specifically designed to STRENGTHEN my muscles: [ 5 ] Day(s) per week 8. [ Allopurinal ] What prescriptions or kfcw-zih-orbbzlw medications are you CURRENTLY taking for health problems on a ROUTINE BASIS? 9. Which of the following products have you taken since your last PHA: None of the above 11. Think about the PAST 30 DAYS. How often did you eat/drink the following foods/beverages? [ 2 servings per day ] Fruits [ 2 servings per day ] Vegetables [ 1 serving per day ] Starchy Vegetables [ 1 serving per day ] Whole Grains [ 1 serving per day ] Dairy and Calcium Containing Foods [ Rarely or Never ] Fish [ 2 servings per day ] Lean Protein [ Rarely or Never ] Sugar-Sweetened Beverages 12. [ No ] Have you had a cholesterol check by a health care giver within the PAST 5 YEARS? 13.a. In the PAST 30 DAYS, which of the following products have you used on at least one day? None 15. Which of the following best describes your past tobacco use? I have never used tobacco products. 16. [ No ] Are you regularly exposed to secondhand smoke? 17. [ 7 to 9 hours ] During the LAST 2 WEEKS, how many hours of sleep did you get on most days? 18. [ No ] During the LAST 2 WEEKS, have you felt impaired or unable to adequately perform due to sleepiness or poor quality sleep? 19. [ No ] Have you had any unexplained weight loss or gain since your last PHA? 20. Member is not at risk for sexually transmitted infections. 22. Since your last PHA, what, if anything, have you and your partner used to keep from getting ? [ Condoms ] I am actively taking steps to prevent , including 23. [ No ] In the last year, have you or your partner had a scare, where you were not trying to get but were worried enough to use a home test? IX. RESERVE COMPONENT (RES) 1. [ No ] Do you have an injury, illness, Or disease which was incurred or aggravated while in a duty status since your last PHA? 4. [ Yes - ] Are you currently coverered under a health insurance policy? 5.a. [No, I have never applied for Worker's Compensation ] Do you have any current physical or mental health limitations related to a Worker's Compensation claim? 6. [ No ] Have you applied for or have you received a VA disability rating? X. OTHER MEDICAL (OTH) 1. [ 0 ] Rate the amount of pain you have had, on average, over the PAST 24 HOURS 3. [ No ] Since your last PHA, have you received care or treatment for any medical and/or mental health condition(s) from a civilian or non- facility? 5. Member acknowledged responsibility for reporting health issues. 7. [ No ] Woud you like to schedule an appointment with a health care provider to discuss any health concerns? XI. SEPARATION AND SENIOR LIVING 1. [ No ] Are you planning to separate or retire within the next year from Active Duty or [place] Duty (activated for greater than 30 continuous days) OR do you intend to file a claim for disability compensation with the [employer]? PART B. RECORD REVIEW AND RECOMMENDATIONS I. RECORD REVIEWER INFORMATION 1. Last Name: DANE 2. First Name: ADYTON 3. Middle Name: FILIPPO 4. Service Branch: [employer] 5. Status: 6. Title: Medic/Compressor Station Engineer Chief/Closing Coordinator 7. EMAIL: [email or web address] 8. Facility: [facility] 9. Unit: [address] [place], [place] [address] 10. Address: [address] [place] [address] 11. State: [place] 12. Zip Code: [address] 13. Phone: [phone] 14. Date Record Review: II. MEDICAL SCREENING 1. [ ] Date of merchandise flow team member's most recent PHA 2. [ 6 feet 2 inches Date: ] merchandise flow team member's most recently documented height 3. [ 182 pounds Date: ] merchandise flow team member's most recently documented weight 4. [ 115/78 Date: ] merchandise flow team member's most recently documented blood pressure reading 5. [ No ] Does the merchandise flow team member have a history of abnormal blood pressure since their last PHA? 6. [ Yes ] Does the merchandise flow team member have a laboratory test of sickle cell trait documented in their permanent medical record? 7. [ No Cholesterol Test Documented ] What is the date of the merchandise flow team member's most recently documented cholesterol test? 9. [ Allopurinol 100mg ] List of merchandise flow team member's active medications listed in their permanent medical record 10. [ No ] Is there a discrepancy between the active medication record review and the merchandise flow team member's self-reported list of medications? 11. [ rheumatology for gout ] List documented significant care the merchandise flow team member has received since their last PHA from a provider OUTSIDE the Health System 12. [ No ] Is there a discrepancy between the merchandise flow team member's list of OUTSIDE care (from OT5), and the OUTSIDE care found in the record? 13. [ No Inside Care Documented ] List documented significant care the merchandise flow team member has received since their last PHA from a provider INSIDE the Health System 15. [ Not Answered ] Confirm that vaccine exemptions are listed in the medical record for each vaccine listed III. OCCUPATION-SPECIFIC EXAMINATIONS 1. [ ] When was the merchandise flow team member's most recently documented special operational duty physical exam? IV. FAMILY HISTORY AND LIFESTYLE 1. [ Yes ] Does the [id number] reflect the merchandise flow team member's reported family history? VII. INDIVIDUAL MEDICAL READINESS 1. [ No ] Does the merchandise flow team member have an Assignment Limitation Code C? 3. [ Classification: 1 ] Most recently documented dental exam 4. [ No: Influenza, [place] Typhoid ] Is the merchandise flow team member current on all required immunizations in the immunization tracking system? 5. [ Yes ] Is the merchandise flow team member current with Service-specific requirements for glasses and gas mask inserts? 6. Does the merchandise flow team member have the following laboratory tests documented in their permanent medical record? [ Yes ] HIV test within the PAST 24 months [ Yes ] G6PD results on file [ Yes ] Blood type and Rh on file [ Yes ] DNA test on file IX. ADDITIONAL RECORD REVIEWER COMMENTS 1. This record review does NOT have a need for provider notification or referral.2. Additional comments about this record review that need to be forwarded to the Health Medical Technologist [employer] [facility] completing PART C: Flying waiver for gout- sees rheumatology. Asymptomatic, well controlled. No DLCs or pain. No major life stressors, gambling, or sleep concerns. Negative depression screening. No supplements. Adequate diet and exercise. No alcohol or tobacco concerns. Date Record Review Completed: PART C. HEALTH CARE PROVIDER I. MENTAL HEALTH ASSESSMENT (MHA) PROVIDER INFORMATION 1. Last Name: FARZAD 2. First Name: IVETH 3. Middle Name: [facility] 4. Service Branch: [employer] 5. 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 Title: Physician (DO ROSHNI) 7. EMAIL: [email or web address] 8. Facility: [facility] 9. Unit: [address] [place], [place] [address] 10. Address: [address] [place] [address] 11. State: [place] 12. Zip Code: [address] 13. Phone: [phone] 14. Date HCP Review initiated: 1. Member marked that they did not have a concern or a difficulty with a major life stressor. 2. Address concerns identified on member questions 2 and 3. History of mental health care: N/A Member's response: Provider's comments: Medications: N/A Member's response: Provider's comments: 3. Member's AUDIT-C screening score was 0. (nothing required) 4. Member did not elias yes on two or more of questions 6a through 6e. 5. Member did not elias More than half the days or nearly every day on question 7a or 7b. 6. Suicide risk evaluation. 6. a. Ask: Over the past month, have you wished you were or wished you could go to sleep and not wake up?: No 6. b. Ask: Have you actually had any thoughts of killing yourself?: No 6. f. 1. Ask: In you lifetime, have you done anything, started to do anything, or prepared to do anything to end your life?: No 6. g. Further risk assessment comments: 7. Member states that they have not had thoughts or concerns over the past month that they might hurt or lose control with someone. 9. Summary of Provider's identified concerns needing referrals: None 11. Comments: 13. Supplemental services recommended/information provided: No supplemental services required Date MHA Certified: III. PERIODIC HEALTH ASSESSMENT (PHA) PROVIDER INFORMATION 1. Last Name: FARZAD 2. First Name: IVETH 3. Middle Name: [facility] 4. Service Branch: [employer] 5. 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 Title: Physician (DO ROSHNI) 7. EMAIL: [email or web address] 8. Facility: [facility] 9. Unit: [address] [place], [place] [address] 10. Address: [address] [place] [address] 11. State: [place] 12. Zip Code: [address] 13. Phone: [phone] 14. Date HCP Review initiated: IV. PERIODIC HEALTH ASSESSMENT PROVIDER RECOMMENDATIONS and REFERRALS 1. Provider concerns with this assessment: No issues or concerns identified V. SUMMARY AND COMMENTS 1. Additional information summarizing findings during the merchandise flow team member assessment: 2. Provider Comments: No issues or concerns identified. . INDIVIDUAL MEDICAL READINESS DISPOSITION DETERMINATION JESÚS: Ready DEN: Ready IMM: Ready LAB: Ready ME: Ready IMR Status: Fully Medically Ready VII. SERVICE MEDICAL DEPLOYABILITY EVALUATION INDICATED Based on your review of all documentation, is the merchandise flow team member medically deployable without limitations? Reference Nikki 6490.07 Yes (merchandise flow team member DOES NOT currently have a medical condition that limits deployability) Date PHA Completed: END OF [id number] REPORT Impression: Meets?FCIII?medical standards per HUNTER 48-123/MSD. Aeromedical Disposition: No DNIF. DD 2992?signed. No AF469 changes based on this encounter. [employer] Qualified. 12/29/2024 [id number] [facility] Functional Status Combined list of recent functional and cognitive assessments recorded at [employer] (VA[facility]VA Functional [place] Measurement (FIM) Scale: 1 = Total Assistance (Subject = 0% +), 2 = Maximal Assistance (Subject = 25% +), 3 = Moderate Assistance (Subject = 50% +), 4 = Minimal Assistance (Subject = 75% +), 5 = Supervision, 6 = Modified [place] (Device), 7 = Complete [place] (Timely, Safely). Assessment Date/Time Source Assessment Type Assessment Skill Assessment Score Assessment Details No data available for this section
== END 2024-12-29 14:04 | disposition home or self-care (01) ==
LOC: HO.HMCC 11:01
PROVIDERS: PCP Nurse Practitioner Family; Visit Provider Nurse Practitioner Family
DX: Z00.00 Encounter for general adult medical examination without abnormal findings (principal); M1A.0790 Idiopathic chronic gout, unspecified ankle and foot, without tophus (tophi); K60.2 Anal fissure, unspecified

== ENCOUNTER → 2024-12-29 11:00 | Outpatient (BNVA) | payer OTHER, SELFPAY | PROVIDERS: PCP Nurse Practitioner Family; Visit Provider Nurse Practitioner Family | DX: Z00.00 Encounter for general adult medical examination without abnormal findings (principal); M1A.0790 Idiopathic chronic gout, unspecified ankle and foot, without tophus (tophi); K60.2 Anal fissure, unspecified | CPT/HCPCS: 96127 ==

== ENCOUNTER 2025-01-05 14:37 | Outpatient (REF) | payer OTHER, SELFPAY ==
[2025-01-05 16:18] LABS: MANUAL DIFF FLAG NO
[2025-01-05 16:28] LABS: Appearance Urine Clear; Color Urine Yellow; Glucose Urine UA Negative (Negative); Leukocyte Esterase Urine Negative (Negative); Nitrite Urine Negative (Negative); Urine Blood Negative (Negative); Urine Ketones Negative (Negative); Urine Protein Negative (Neg-Trace)
[2025-01-05 16:57] LABS: Basophils Absolute Auto 0.1 X10*3/uL (0.0-0.2); Basophils Percent Auto 0.7 % (0-2); Eosinophils Absolute Auto 0.1 X10*3/uL (0.0-0.4); Hematocrit 47.2 % (42.0-52.0); Hemoglobin 15.7 g/dl (14.0-18.0); Imm Gran Abs Auto 0.04 X10*3/uL (0.00-0.03); Imm Gran Pct Auto 0.6 % (0.0-0.4); Lymphocytes Absolute Auto 1.5 X10*3/uL (1.2-4.9); Lymphocytes Percent Auto 20.6 % (20-40); Mean Corpuscular HGB Conc 33.3 g/dl (31.0-36.0); Mean Corpuscular Hemoglobin 29.1 pg (27.0-33.0); Mean Corpuscular Volume 87.4 fL (80.0-98.0); Mean Platelet Volume 11.1 fL (9.4-12.4); Monocytes Absolute Auto 0.4 X10*3/uL (0.1-1.2); Monocytes Percent Auto 6.3 % (2-11); Neutrophils Percent Auto 70.8 % (45-73); Platelet Count 203 X10*3/uL (160-400); Red Cell Distribution Width 12.7 % (11.0-16.0)
[2025-01-05 17:16] LABS: Alanine Aminotransferase 19 U/L (0-40); Albumin Level 4.3 g/dL (3.5-5.0); Anion Gap 10 (12-20); Aspartate Amino Transferase 26 U/L (5-37); Bilirubin Total 1.2 mg/dL (0.0-1.0); Blood Urea Nitrogen 11 mg/dL (9-16); Calcium 9.2 mg/dL (8.4-10.2); Carbon Dioxide 27 mmol/L (22-29); Chloride 107 mmol/L (96-108); Cholesterol 132 mg/dL (<200); Estimated Glomerular Filt Rate > 60; Glucose Fasting 96 mg/dL (60-99); HDL Cholesterol 49 mg/dL (>40); LDL Cholesterol Calculated 66 mg/dL (<100); Potassium 4.4 mmol/L (3.3-5.1); Sodium 140 mmol/L (135-145); Total Protein 7.5 g/dL (6.5-8.0); Triglycerides 87 mg/dL (<150); Uric Acid 12.8 mg/dL (3.4-7.0)
--- OUTSIDE RECORDS SUMMARY | 2025-01-05 17:22 | XMS_ITS | Continuity of Care Document ---
Author Name [facility] Organization [facility] Care Team Providers Care Manager Financial Services Name Role Phone [facility] Unavailable Unavailable Immunizations Combined list of available immunizations from the Department of Defense and Veterans Affairs facilities. Immunization Series Date Given Administered By Site Reaction Lot Number CVX Code Drug Track Grinder Status Comments Source typhoid vaccine, parenteral 2022 KAVYA Sim marielal, left (delt oid) [id number] sanofi pasteur complet ed typhoid vaccine, parentera l 08/21/23 Given 8344R-4 39 AMDS influenza, injectable, quadrivalent- pf 2021 [id number] 150 GlaxoSmithKli ne complet ed influenza , injectabl e, quadrival ent-pf 08/25/22 Given Ambulat ory Pharmac y COVID Vaccine Pfizer 2020 [id number] PFIZER complet ed COVID Vaccine Pfizer 09/24/21 Given Ambulat ory Pharmac y influenza, injectable, quadrivalent- pf 2020 [id number] 150 GlaxoSmithKli ne complet ed influenza , injectabl e, quadrival ent-pf 09/24/21 Given Ambulat ory Pharmac y typhoid Vi capsular polysaccharid e vac 2020 [id number] 101 sanofi pasteur complet ed typhoid Vi capsular polysacch aride vac 07/23/21 Given Ambulat ory Pharmac y COVID Vaccine Moderna 2020 [id number] 207 complet ed COVID Vaccine Moderna 12/25/20 Given Ambulat ory Pharmac y COVID Vaccine Moderna 2020 [id number] 207 complet ed COVID Vaccine Moderna 11/15/20 Given Ambulat ory Pharmac y influenza virus vaccine, inactivated 2019 88 Seqirus complet ed influenza virus vaccine, inactivat ed 09/27/20 Given Ambulat ory Pharmac y influenza, seasonal, injectable 2019 [id number] 141 Seqirus complet ed influenza , seasonal, injectabl e 09/27/20 Given Ambulat ory Pharmac y influenza, injectable, quadrivalent- pf 2018 [id number] 150 Seqirus complet ed influenza , injectabl e, quadrival ent-pf 08/27/19 Given Ambulat ory Pharmac y meningococcal A,C,Y,W-135 (MCV4P) 2018 [id number] 114 sanofi pasteur complet ed meningoco ccal A,C,Y,W-1 35 (MCV4P) 08/27/19 Given Ambulat ory Pharmac y typhoid Vi capsular polysaccharid e vac 2018 [id number] 101 sanofi pasteur complet ed typhoid Vi capsular polysacch aride vac 08/21/19 Given Ambulat ory Pharmac y influenza, injectable, quadrivalent- pf 2017 [id number] 150 Seqirus complet ed influenza , injectabl e, quadrival ent-pf 08/11/18 Given Ambulat ory Pharmac y influenza virus vaccine, inactivated 2016 [id number] 88 Seqirus complet ed influenza virus vaccine, inactivat ed 07/13/17 Given Ambulat ory Pharmac y typhoid Vi capsular polysaccharid e vac 2016 [id number] 101 sanofi pasteur complet ed typhoid Vi capsular polysacch aride vac 07/13/17 Given Ambulat ory Pharmac y influenza, seasonal, injectable 2015 [id number] 141 GlaxoSmithKli ne complet ed influenza , seasonal, injectabl e 08/25/16 Given Ambulat ory Pharmac y influenza, seasonal, injectable-pf 2014 [id number] 140 CSL Behring complet ed influenza , seasonal, injectabl e-pf 08/11/15 Given Ambulat ory Pharmac y typhoid Vi capsular polysaccharid e vac 2014 [id number] 101 sanofi pasteur complet ed typhoid Vi capsular polysacch aride vac 07/30/15 Given Ambulat ory Pharmac y yellow fever vaccine 2014 [id number] 37 sanofi pasteur complet ed yellow fever [...] 10/25/14 Given Ambulat ory Pharmac y hepatitis A-hepatitis B vaccine 2013 [id number] 104 GlaxoSmithKli ne complet ed hepatitis A-hepatit is B vaccine 09/08/14 Given Ambulat ory Pharmac y tuberculin purified protein derivative 2013 [id number] 96 sanofi pasteur complet ed tuberculi n purified protein derivativ e 09/03/14 Given Ambulat ory Pharmac y adenovirus vaccine, live 2013 [id number] 143 Teva Pharmaceutica ls complet ed adenoviru s vaccine, live 09/03/14 Given Ambulat ory Pharmac y influenza, seasonal, injectable-pf 2013 [id number] 140 Novartis Pharmaceutica ls complet ed influenza , seasonal, injectabl e-pf 09/03/14 Given Ambulat ory Pharmac y tetanus, diphtheria, acellular pertu is 2013 [id number] 115 GlaxoSmithKli ne complet ed tetanus, diphtheri a, acellular pertussis 09/03/14 Given Ambulat ory Pharmac y meningococcal A,C,Y,W-135 (MCV4P) 2013 [id number] 114 sanofi pasteur complet ed meningoco ccal A,C,Y,W-1 35 (MCV4P) 09/03/14 Given Ambulat ory Pharmac y poliovirus vaccine, inactivated 2013 [id number] 10 sanofi pasteur complet ed polioviru s vaccine, inactivat ed 09/03/14 Given Ambulat ory Pharmac y Results Combined list of recent chemistry, hematology [...] Prevention' s HIV diagnostic algorithm. Refer to [facility] Lab Guide for additional information : [email or web address] x Testing performed by [employer] [facility]. 5600A-U SAFSAM EPILAB Miscellan eous Sendouts Repository Sample Received [...] ADM Date DC Date Status Disposition Source [facility] Between Visit [id number] 07/07 Discharge Disposition: Home or Self Care 0310C-A -C-66t h [facility] 8344R-439 AMDS Care Not Rendered [id number] 08/22 Discharge Disposition: Home or Self Care 8344R-4 39 AMDS 8344R-439 AMDS Outpatient [id number] EDMUND JOELLE 08/22 Discharge Disposition: Home or Self Care 8344R-4 39 AMDS 8344R-439 AMDS Between Visit [id number] 11/03 Discharge Disposition: Home or Self Care 8344R-4 39 AMDS Procedures Combined list of: 1) Procedures from Department of Veterans Affairs facilities going back up to thelast 18 months, not all VA non-surgical procedures are included; 2) All procedures from the Department of Defense facilities. Procedure Procedure Type Code Date Perfomer Comments Sourc e No data available for this section Ambulatory P harmacy Social History Combined list of available smoking, tobacco, and other social history from Department of Defense and Veterans Affairs facilities. Social History Type Response Date Comment Sourc e Sex Representation Male 11/01/2022 Unknow n Organization Sexual Orientation Ambula tory Pharmacy Gender identity Ambulator y Pharmacy Assessment and Plan Combined list of future [...] by mouth once daily. Chronic Problems: ?gout SF 507: _ Comments: Addendum by EDMUND NICHOLS MD on August 22, 2024 16:32 EDT Chief Complaint: Member here for annual fly PHA. Patient is able to complete duties required by [employer]. No acute complaints.Waiver for:gout Initial Waiver Date:01/14/23 Waiver Exp Date:???01/18/26 IMR?green. Test results reviewed: Audio: Audiogram H-1, no asymmetric hearing loss, no significant threshhold shift Optometry:Meets vision standards for: Near and distant visual acuity, IOP, Depth perception, Phorias EKG:?Not Required PHYSICAL EXAM: HEENT:?Normal Valsalva:?Normal Joints:?Normal Spine:Normal Skin:Normal Neuro:?Normal Lungs:?Normal Heart:?Normal Abdomen:?Normal Comments: ?ANNUAL PERIODIC HEALTH ASSESSMENT I. REMEDIATION TECHNICIAN INFORMATION AND DEMOGRAPHICS (SMI) 1. Last Name: ALEXA 2. First Name: HALLIE 3. Middle Name: ANIYAH 4. Assessment Date: 5. : 6. Age: 33 7. Gender: M 8. DoD ID Number: [id number] 9. Service Branch: [employer] 10. 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 Unit Name: [address] 14. Duty Station/Location: [place] 15. UIC: [id number] 16. Is this your first Periodic Health Assessment (PHA)?: N 17. Are you enrolled in a secure messaging system with your health care provider?: 18. Current contact information: Preferred Method: Day Time Phone DSN: [id number] Day Time Phone: [phone] Night Time Phone: [phone] Email 1: [email or web address] Email 2: Address: [address] [place] [address] City: [place] State: [place] Zip Code: [address] 19. Point of contact who can always reach you: Name: Phyllis Echavarriamers Phone 1: [phone] Phone 2: EMAIL: Address: City: State: Zip Code: II. DEPLOYMENT INFORMATION (DEP) 1. [ 0 ] Total number of deployments in the PAST 5 YEARS 4. [ N ] Are you going to deploy within the NEXT 120 DAYS? III. OCCUPATIONAL INFORMATION (OCC) 1 [ [id number] ] What is your occupational code 2. [...] easily startled? 6. d. [ No ] [place] numb or detached from others, activities, or your surroundings? 6. e. [ Not answered ] [place] guilt or unable to stop blaming yourself [...] like to schedule a visit with a order make up clerk, mental health care provider, or a [...] 8. [ None ] What prescriptions or ytgk-cfu-lpscpor medications are you CURRENTLY taking for health [...] had a cholesterol check by a health pulmonary care nurse within the PAST 5 YEARS? 13.a. In [...] discuss any health concerns? XI. SEPARATION AND ASSISTED 1. [ No ] Are you planning to separate or retire within the next year from Active Duty or [place] Duty (activated for greater than 30 continuous days) OR do you intend to file a claim for disability compensation with the Veterans Benefits Administration? PART B. RECORD REVIEW AND RECOMMENDATIONS I. RECORD REVIEWER INFORMATION 1. Last Name: DILMA 2. First Name: BIPIN 3. Middle Name: 4. Service Branch: [employer] 5. 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 Title: Medic/Paper Baling Machine Operator/Transportation Coordinator 7. EMAIL: [email or web address] 8. Facility: [facility] 9. Unit: [facility] 10. Address: [address] [place] [address] 11. State: [place] 12. Zip Code: [address] 13. Phone: [phone] 14. Date Record Review: II. MEDICAL SCREENING 1. [ ] Date of member certification manager's most recent PHA 2. [ 6 feet 2 inches Date: ] member certification manager's most recently documented height 3. [ 185 pounds Date: ] member certification manager's most recently documented weight 4. [ 129/79 Date: ] member certification manager's most recently documented blood pressure reading 5. [ No ] Does the member certification manager have a history of abnormal blood pressure since their last PHA? 6. [ Yes ] Does the member certification manager have a laboratory test of sickle cell trait documented in their permanent medical record? 7. [ No Cholesterol Test Documented ] What is the date of the member certification manager's most recently documented cholesterol test? 9. [ No Active Medications Documented ] List of member certification manager's active medications listed in their permanent medical record 10. [ No ] Is there a discrepancy between the active medication record review and the member certification manager's self-reported list of medications? 11. [ No Outside Care Documented ] List documented significant care the member certification manager has received since their last PHA from a provider OUTSIDE the Health System 12. [ No ] Is there a discrepancy between the member certification manager's list of OUTSIDE care (from OTH5), and the OUTSIDE care found in the record? 13. [ No Inside Care Documented ] List documented significant care the member certification manager has received since their last PHA from a provider INSIDE the Health System 15. [ Not Answered ] Confirm that vaccine exemptions are listed in the medical record for each vaccine listed III. OCCUPATION-SPECIFIC EXAMINATIONS 1. [ ] When was the member certification manager's most recently documented special operational duty physical exam? IV. FAMILY HISTORY AND LIFESTYLE 1. [ Yes ] Does the [id number] reflect the member certification manager's reported family history? VII. INDIVIDUAL MEDICAL READINESS 1. [ No ] Does the member certification manager have an Assignment Limitation Code C? 3. [ Classification: 2 ] Most recently documented dental exam 4. [ Yes ] Is the member certification manager current on all required immunizations in the immunization tracking system? 5. [ Yes ] Is the member certification manager current with Service-specific requirements for glasses and gas mask inserts? 6. Does the member certification manager have the following laboratory tests documented in [...] need to be forwarded to the Health Kettle Worker completing PART C: Member is currently seeking professional help for anxiety and is awaiting an appointment. No deployment within the past five years. No VA rating. Member is not currently on a temporary profile. Member reports very good health. Member has never used tobacco products. Member is not currently taking prescription or nkiw-hoe-xdzbtno medications. Pain level: 0. No other significant findings. JLV reviewed. No other discrepancies found. Date Record Review Completed: PART C. HEALTH CARE PROVIDER I. MENTAL HEALTH ASSESSMENT (MHA) PROVIDER INFORMATION 1. Last Name: TREY 2. First Name: EDMUND 3. Middle Name: 4. Service Branch: [employer] 5. 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 Title: Physician (DO ROSHNI) 7. EMAIL: [email or web address] 8. Facility: [facility] 9. Unit: [address] [place] [address] 10. Address: [address] [place] [address] 11. State: [place] 12. Zip Code: [address] 13. Phone: [phone] 14. Date HCP Review initiated: 1. Member [...] response: Provider's comments: member will talk with [facility] Medications: N/A Member's response: Provider's comments: [...] Comments: 12. Address requests as reported on member certification manager questions 7 through 10 (in [employer] Fe[employer] Section . Behavioral Health): Request medical appointment: member will talk with [facility] Request information on stress/emotional/alcohol: member will talk with [facility] 13. Supplemental services recommended/information provided: [facility] Date MHA Certified: III. PERIODIC HEALTH ASSESSMENT (PHA) PROVIDER INFORMATION 1. Last Name: TREY 2. First Name: EDMUND 3. Middle Name: 4. Service Branch: [employer] 5. 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 Title: Physician (DO ROSHNI) 7. EMAIL: [email or web address] 8. Facility: [facility] 9. Unit: [address] [place], [place] [address] 10. Address: [address] [place] [address] 11. State: [place] 12. Zip Code: [address] 13. Phone: [phone] 14. Date HCP Review initiated: IV. PERIODIC HEALTH ASSESSMENT PROVIDER RECOMMENDATIONS and REFERRALS 1. Provider concerns with this assessment: No issues or concerns identified V. SUMMARY AND COMMENTS 1. Additional information summarizing findings during the member certification manager assessment: 2. Provider Comments: stable gout, taking allopurinol . INDIVIDUAL MEDICAL READINESS DISPOSITION DETERMINATION JESÚS: Ready DEN: Ready IMM: Ready LAB: Ready ME: Ready IMR Status: Fully Medically Ready VII. SERVICE MEDICAL DEPLOYABILITY EVALUATION INDICATED Based on your review of all documentation, is the member certification manager medically deployable without limitations? Reference Nikki 6490.07 Yes (member certification manager DOES NOT currently have a medical condition that limits deployability) Date PHA Completed: END OF [id number] REPORT Impression: Meets?FCIII?medical standards per HUNTER 48-123/MSD. [...] Weight: 86.18 BMI: 23.12 Medications: Chronic Problems: 507: _ Comments: Addendum by IVETH PANDA MD on September 21, 2023 13:55 EST Chief Complaint: Member here for annual fly PHA. Patient is able to complete duties required by [employer]. No acute complaints.NO: Fly?waiver. Initial Waiver Date: Waiver Exp Date: Moshe. Test results reviewed: Audio: Audiogram H-1, no asymmetric hearing loss, no significant threshhold shift Optometry:Meets vision standards for: Near and distant visual acuity, IOP, Depth perception, Phorias EKG:?_ PHYSICAL EXAM: HEENT:?Normal Valsalva:?Normal Joints:?Normal Spine:Normal Skin:Normal Neuro:?Normal Lungs:?Normal Heart:?Normal Abdomen:?Normal Comments: ANNUAL PERIODIC HEALTH ASSESSMENT I. REMEDIATION TECHNICIAN INFORMATION AND DEMOGRAPHICS (SMI) 1. Last Name: ALEXA 2. First Name: HALLIE 3. Middle Name: ANIYAH 4. Assessment Date: 5. : 6. Age: 32 7. Gender: M 8. DoD ID Number: [id number] 9. Service Branch: [employer] 10. 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 Unit Name: [address] 14. Duty Station/Location: [place] 15. UIC: [id number] 16. Is this your first Periodic Health Assessment (PHA)?: N 17. Are you enrolled in a secure messaging system with your health care provider?: 18. Current contact information: Preferred Method: Day Time Phone DSN: [id number] Day Time Phone: [phone] Night Time Phone: [phone] Email 1: [email or web address] Email 2: Address: [facility] City: [place] State: [place] Zip Code: [address] 19. Point of contact who can always reach you: Name: Manolo Barnes Phone 1: [phone] Phone 2: EMAIL: Address: City: State: Zip Code: II. DEPLOYMENT INFORMATION (DEP) 1. [ 0 ] Total number of deployments in the PAST 5 YEARS 4. [ N ] Are you going to deploy within the NEXT 120 DAYS? III. OCCUPATIONAL INFORMATION (OCC) 1 [ [id number] ] What is your occupational code 2. [...] easily startled? 6. d. [ No ] [place] numb or detached from others, activities, or your surroundings? 6. e. [ Not answered ] [place] guilt or unable to stop blaming yourself [...] like to schedule a visit with a order make up clerk, mental health care provider, or a [...] 8. [ Allopurinal ] What prescriptions or szdo-rcg-esaiedq medications are you CURRENTLY taking for health [...] had a cholesterol check by a health pulmonary care nurse within the PAST 5 YEARS? 13.a. In [...] discuss any health concerns? XI. SEPARATION AND ASSISTED 1. [ No ] Are you planning to separate or retire within the next year from Active Duty or [place] Duty (activated for greater than 30 continuous days) OR do you intend to file a claim for disability compensation with the Veterans Benefits Administration? PART B. RECORD REVIEW AND RECOMMENDATIONS I. RECORD REVIEWER INFORMATION 1. Last Name: DANE 2. First Name: [place] 3. Middle Name: FILIPPO 4. Service Branch: [employer] 5. Status: 6. Title: Medic/Paper Baling Machine Operator/Transportation Coordinator 7. EMAIL: [email or web address] 8. Facility: [facility] 9. Unit: [facility] 10. Address: [address] [place] [address] 11. State: [place] 12. Zip Code: [address] 13. Phone: [phone] 14. Date Record Review: II. MEDICAL SCREENING 1. [ ] Date of member certification manager's most recent PHA 2. [ 6 feet 2 inches Date: ] member certification manager's most recently documented height 3. [ 182 pounds Date: ] member certification manager's most recently documented weight 4. [ 115/78 Date: ] member certification manager's most recently documented blood pressure reading 5. [ No ] Does the member certification manager have a history of abnormal blood pressure since their last PHA? 6. [ Yes ] Does the member certification manager have a laboratory test of sickle cell trait documented in their permanent medical record? 7. [ No Cholesterol Test Documented ] What is the date of the member certification manager's most recently documented cholesterol test? 9. [ Allopurinol 100mg ] List of member certification manager's active medications listed in their permanent medical record 10. [ No ] Is there a discrepancy between the active medication record review and the member certification manager's self-reported list of medications? 11. [ rheumatology for gout ] List documented significant care the member certification manager has received since their last PHA from a provider OUTSIDE the Health System 12. [ No ] Is there a discrepancy between the member certification manager's list of OUTSIDE care (from OT5), and the OUTSIDE care found in the record? 13. [ No Inside Care Documented ] List documented significant care the member certification manager has received since their last PHA from a provider INSIDE the Health System 15. [ Not Answered ] Confirm that vaccine exemptions are listed in the medical record for each vaccine listed III. OCCUPATION-SPECIFIC EXAMINATIONS 1. [ ] When was the member certification manager's most recently documented special operational duty physical exam? IV. FAMILY HISTORY AND LIFESTYLE 1. [ Yes ] Does the [id number] reflect the member certification manager's reported family history? VII. INDIVIDUAL MEDICAL READINESS 1. [ No ] Does the member certification manager have an Assignment Limitation Code C? 3. [ Classification: 1 ] Most recently documented dental exam 4. [ No: Influenza, [place] Typhoid ] Is the member certification manager current on all required immunizations in the immunization tracking system? 5. [ Yes ] Is the member certification manager current with Service-specific requirements for glasses and gas mask inserts? 6. Does the member certification manager have the following laboratory tests documented in [...] need to be forwarded to the Health Kettle Worker completing PART C: Flying waiver for gout- [...] 2. First Name: IVETH 3. Middle Name: PUJA 4. Service Branch: [employer] 5. 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 Title: Physician (DO ROSHNI) 7. EMAIL: [email or web address] 8. Facility: [facility] 9. Unit: [facility] 10. Address: [address] [place] [address] 11. State: [place] 12. Zip Code: [address] 13. Phone: [phone] 14. Date HCP Review initiated: 1. Member [...] 2. First Name: IVETH 3. Middle Name: PUJA 4. Service Branch: [employer] 5. 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 Title: Physician (DO ROSHNI) 7. EMAIL: [email or web address] 8. Facility: [facility] 9. Unit: [address] [facility] 10. Address: [address] [place] [address] 11. State: [place] 12. Zip Code: [address] 13. Phone: [phone] 14. Date HCP Review initiated: IV. PERIODIC HEALTH ASSESSMENT PROVIDER RECOMMENDATIONS and REFERRALS 1. Provider concerns with this assessment: No issues or concerns identified V. SUMMARY AND COMMENTS 1. Additional information summarizing findings during the member certification manager assessment: 2. Provider Comments: No issues or concerns identified. . INDIVIDUAL MEDICAL READINESS DISPOSITION DETERMINATION JESÚS: Ready DEN: Ready IMM: Ready LAB: Ready ME: Ready IMR Status: Fully Medically Ready VII. SERVICE MEDICAL DEPLOYABILITY EVALUATION INDICATED Based on your review of all documentation, is the member certification manager medically deployable without limitations? Reference [facility] 6490.07 Yes (member certification manager DOES NOT currently have a medical condition that limits deployability) Date PHA Completed: END OF [id number] REPORT Impression: Meets?FCIII?medical standards per HUNTER 48-123/MSD. Aeromedical Disposition: No DNIF. DD 2992?signed. No AF469 changes based on this encounter. [employer]-Wide Qualified. 01/05/2025 8344R-439 [facility] Functional Status Combined list of recent functional and cognitive assessments recorded at Department of Defense and Veterans Affairs (VA).VA Functional [place] Measurement (FIM) Scale: 1 = Total Assistance (Subject = 0% +), 2 = Maximal Assistance (Subject = 25% +), 3 = Moderate Assistance (Subject = 50% +), 4 = Minimal Assistance (Subject = 75% +), 5 = Supervision, 6 = Modified [place] (Device), 7 = Complete [place] (Timely, Safely). Assessment Date/Time Source Assessment Type Assessment Skill Assessment Score Assessment Details No data available for this section
[2025-01-05 17:35] LABS: TSH reflex Free T4 0.55 uIU/mL (0.32-4.0)
[2025-01-05 17:42] LABS: Alkaline Phosphatase 58 U/L (39-117)
== END 2025-01-05 14:38 | disposition home or self-care (01) ==
LOC: HO.HMGCLDS 14:37
PROVIDERS: PCP Nurse Practitioner Family; Visit Provider Nurse Practitioner Family
DX: Z00.00 Encounter for general adult medical examination without abnormal findings (principal); Z13.6 Encounter for screening for cardiovascular disorders; M1A.0790 Idiopathic chronic gout, unspecified ankle and foot, without tophus (tophi)
CPT/HCPCS: 36415; 80053; 80061; 81003; 84443; 84550; 85025

== ENCOUNTER 2025-02-13 13:17 | Outpatient (REF) | payer OTHER, SELFPAY ==
--- OUTSIDE RECORDS SUMMARY | 2025-02-13 13:19 | XMS_ITS | Continuity of Care Document ---
Author Name [facility] Organization [facility] Care Team Providers Care Steam Press Tender Name Role Phone [facility] Unavailable Unavailable Problems Combined list of problems from Department of Defense and Veterans Affairs facilities. It does not include entries that were removed or entered in error. Problem Status Onset Date Problem Type Date of Resolution Comme nts Source closed fracture of carpal bone(s) scaphoid Active Condition [facility] Allergies, Adverse Reactions, Alerts Combined list of allergies from Department of Defense and Veterans Affairs facilities. It does not include entries that were removed or entered in error. Substance Category Reaction Severity Reaction type Status Date Reported Comments Source No Known Allergies Drug allergy (disorder) active 09/09/2014 [place] [address] Immunizations Combined list of available immunizations from the Department of Defense and Veterans Affairs facilities. Immunization Series Date Given Administered By Site Reaction Lot Number CVX Code Drug Director Business Intelligence Status Comments Source typhoid vaccine, parenteral 2022 KAVYA Sim mariella, left (delt oid) [id number] sanofi pasteur complet ed typhoid vaccine, parentera l 08/21/23 Given 8344R-4 39 AMDS influenza, injectable, quadrivalent- pf 2021 [id number] 150 GlaxoSmithKli ne complet ed influenza , injectabl e, quadrival ent-pf 08/25/22 Given Ambulat ory Pharmac y COVID Vaccine Pfizer 2020 [id number] 208 PFIZER complet ed COVID Vaccine Pfizer 09/24/21 Given Ambulat ory Pharmac y influenza, injectable, quadrivalent- pf 2020 [id number] 150 GlaxoSmithKli ne complet ed influenza , injectabl e, quadrival ent-pf 09/24/21 Given Ambulat ory Pharmac y typhoid Vi capsular polysaccharid e vac 2020 [id number] 101 sanofi pasteur complet ed typhoid Vi capsular polysacch aride vac 07/23/21 Given Ambulat ory Pharmac y COVID Vaccine Moderna 2020 [id number] 207 complet ed COVID Vaccine Moderna 12/25/20 Given Ambulat ory Pharmac y COVID Vaccine Moderna 2020 [id number] 207 complet ed COVID Vaccine Moderna 11/15/20 Given Ambulat ory Pharmac y influenza virus vaccine, inactivated 2019 88 Seqirus complet ed influenza virus vaccine, inactivat ed 09/27/20 Given Ambulat ory Pharmac y influenza, seasonal, injectable 2019 [id number] 141 Seqirus complet ed influenza , seasonal, injectabl e 09/27/20 Given Ambulat ory Pharmac y Influenza, injectable, MDCK, preservative free, quadrivalent 2019 BOGDASARIAN, () Not Given Influenza , injectabl e, MDCK, preservat daylin free, quadrival ent DoD influenza, injectable, quadrivalent- pf 2018 [id number] 150 Seqirus complet ed influenza , injectabl e, quadrival ent-pf 08/27/19 Given Ambulat ory Pharmac y meningococcal A,C,Y,W-135 (MCV4P) 2018 [id number] 114 sanofi pasteur complet ed meningoco ccal A,C,Y,W-1 35 (MCV4P) 08/27/19 Given Ambulat ory Pharmac y typhoid Vi capsular polysaccharid e vac 2018 [id number] 101 sanofi pasteur complet ed typhoid Vi capsular polysacch aride vac 08/21/19 Given Ambulat ory Pharmac y influenza, injectable, quadrivalent- pf 2017 [id number] 150 Seqirus complet ed influenza , injectabl e, quadrival ent-pf 08/11/18 Given Ambulat ory Pharmac y influenza virus vaccine, inactivated 2016 [id number] 88 Seqirus complet ed influenza virus vaccine, inactivat ed 07/13/17 Given Ambulat ory Pharmac y typhoid Vi capsular polysaccharid e vac 2016 [id number] 101 sanofi pasteur complet ed typhoid Vi capsular polysacch aride vac 07/13/17 Given Ambulat ory Pharmac y influenza, seasonal, injectable 2015 [id number] 141 [facility] complet ed influenza , seasonal, injectabl e 08/25/16 Given Ambulat ory Pharmac y influenza, seasonal, injectable-pf 2014 [id number] 140 CSL Behring complet ed influenza , seasonal, injectabl e-pf 08/11/15 Given Ambulat ory Pharmac y typhoid Vi capsular polysaccharid e vac 2014 [id number] 101 sanofi pasteur complet ed typhoid Vi capsular polysacch aride vac 07/30/15 Given Ambulat ory Pharmac y yellow fever vaccine 2014 [id number] 37 sanofi pasteur complet ed yellow fever [...] vaccine DoD tuberculin purified protein derivative 2013 [id number] 96 sanofi pasteur complet ed tuberculi n purified protein derivativ e 09/03/14 Given Ambulat ory Pharmac y adenovirus vaccine, live 2013 [id number] 143 Teva Pharmaceutica ls complet ed adenoviru s vaccine, live 09/03/14 Given Ambulat ory Pharmac y influenza, seasonal, injectable-pf 2013 [id number] 140 Novartis Pharmaceutica ls complet ed influenza , seasonal, injectabl e-pf 09/03/14 Given Ambulat ory Pharmac y tetanus, diphtheria, acellular pertu is 2013 [id number] 115 GlaxoSmithKli ne complet ed tetanus, diphtheri a, acellular pertussis 09/03/14 Given Ambulat ory Pharmac y meningococcal A,C,Y,W-135 (MCV4P) 2013 [id number] 114 sanofi pasteur complet ed meningoco ccal [...] diphtheria toxoid conjugate vaccine (MCV4P) 1 2013 [id number] 114 Sanofi Pasteur (PMC) complet ed meningoco ccal polysacch aride (groups A, C, Y and W-135) diphtheri a toxoid conjugate vaccine (MCV4P) DoD tetanus toxoid, reduced diphtheria toxoid, and acellular pertu is vaccine, adsorbed 1 2013 [id number] 115 SmithKline (SKB) complet ed tetanus toxoid, reduced diphtheri a toxoid, and acellular pertussis vaccine, adsorbed DoD Influenza, seasonal, injectable, preservative free 1 2013 [id number] 140 Novartis Pharmaceutica l Katie. (NOV) complet ed Influenza , seasonal, injectabl e, preservat daylin free DoD Adenovirus, type 4 and type 7, live, oral 1 2013 [id number] 7 143 Sun Laboratories (BRR) complet ed [...] Prevention' s HIV diagnostic algorithm. Refer to [facility] Lab Guide for additional information : [email or web address]/ [email or web address]/EPIL [email or web address]/la [email or web address].asp x Testing performed by Maikol chamberlain 5600A-U [place] [facility] EPILAB Miscellan eous Sendouts Repository Sample Received [...] ADM Date DC Date Status [place] [address](Opt ometry Clinic [facility]) OUTPATIENT [id number] MARY VILLEGAS 09/08 [facility]ased w/o Limitations [facility] [place] [place] [address](O ptometr y Clinic [facility]) [place] [address]([facility]) OUTPATIENT [id number] Notes Entered by: Basilio SANDERS 09 Sep 2014 0710 ------- ------- ------- ------- -- Strep Prophyl axis ADIN SANDERS 09/09 Released w/o Limitations [facility] [place] [address]([facility] Dom, [place] [address]([facility], [facility]) OUTPATIENT [id number] [facility], [facility] Nutriti on EV Ramires 11/03 Released w/o Limitations [facility] [place] [address](N utritio nal Medicin e, [facility]) [place] [address]([facility] Medicine [facility]) OUTPATIENT [id number] R wrist pain x 1 week KIKA ANDERSON 03/09 Released w/o Limitations [place] [address]([facility] [place] [address](Or hotic Svcs, [facility]) OUTPATIENT [id number] GAY OAKLEY 03/09 Released w/o Limitations [facility] [place] [address](O rthotic Svcs, [facility]) [place] [address]([facility]) OUTPATIENT [id number] follow up AURA SMALL 03/21 Released with Work/Duty Limitations [facility] [place] [address]([facility] Dom, [facility] [place] [address](Ort hopedics, [facility]) TELE CONSULT [id number] ZOE TIRADO 03/24 [facility] [place] [address](O rthoped ics, [facility]) [place] [address](Ort hopedics, [facility]) OUTPATIENT [id number] CLOSED FRACTUR E OF CARPAL BONE(S) - SCAPHOI D; okd per Moise [id number] CHARLEEN MILLER 03/25 Released with Work/Duty Limitations [facility] [place] [address](O rthoped banner, [facility]) [place] [address](ZFl [facility]) OUTPATIENT [id number] Notes Entered by: SUHAIL LOUIS 25 Mar 2015 1027 ------- ------- ------- ------- -- follow up from lena powell JODIE K 03/25 Released with Work/Duty Limitations [facility] [place] [address](Z Flight Medicin e Dom, [facility] d) [place] [address]([facility], [facility]) TELE CONSULT [id number] Notes Entered by: ALPESH BENNETT 31 Mar 2015 1529 ------- ------- ------- ------- -- SrMsgt. Izzy Duran, MED POC wants to know why CHARLEEN MILLER 03/31 [facility] [place] [address](O rthoped banner, [facility]) 0310C C-66th [facility] [employer] Between Visit [id number] 07/07 Discharge Disposition: Home or Self Care 0C--C-t h [facility] [employer] 8344R-439 AMDS Care Not Rendered [id number] 08/22 Discharge Disposition: Home or Self Care 8344R-4 39 AMDS 8344R-439 AMDS Outpatient [id number] EDMUND JOELLE 08/22 Discharge Disposition: Home or Self Care 8344R-4 39 AMDS 8344R-439 AMDS Between Visit [id number] 11/03 Discharge Disposition: Home or Self Care 8344R-4 39 AMDS 8344R-439 AMDS Between Visit [id number] 01/23 Discharge Disposition: Home or Self Care 8344R-4 39 AMDS Procedures Combined list of: 1) Procedures from Department of Veterans Affairs facilities [facility], not all VA non-surgical procedures are included; 2) All procedures from the Department of Defense facilities. Procedure Procedure Type Code Date Perfomer Comments Sour e No data available for this section Ambulatory Pharmacy Special casting material (e.g., fibergla ) 5 CHARLEEN MADRID Orthopedic Casting Long Arm Orthopedic Casting Long Arm 25970 5 CHARLEEN MADRID thumb spica cast [facility] Wrist hand orthosis, wrist extension control cock-up, non molded, prefabricated, upa-rir-kaiwr 5 GAY OAKLEY Research Chemical Engineer Educ Orthotics Training Each Additional 15 Minutes 5 GAY OAKLEY Medical Nutrition Therapy Group (2 or More Individuals) Each 30 Minutes Medical Nutrition Therapy Group (2 or More Individuals) Each 30 Minutes 23647 5 EV MUÑOZ Screening Test Of Visual Acuity, Quantitative, Bilateral Screening Test Of Visual Acuity, Quantitative, Bilateral 93395 4 RIO GARCIA Spectacles Services Fitting Monofocal Except For Aphakia Spectacles Services Fitting Monofocal Except For Aphakia 58517 4 RIO GARCIA Social History Combined list of available smoking, tobacco, and other social history from Department of Defense and Veterans Affairs facilities. Social History Type Response Date Comment Sourc e Sex Representation Male (finding) 11/01/2022 Un known Organization Sexual Orientation Amb[facility] tory Pharmacy Gender identity Ambulator y Pharmacy This section is an empty social history section. DoD Assessment and Plan Combined [...] SF 507: _ Comments: Addendum by EDMUND YANG MD on August 22, 2024 16:32 EDT Chief Complaint: Member here for annual fly PHA. Patient is able to complete duties required by AFNM. No acute complaints.Waiver for:gout Initial Waiver Date:01/14/23 Waiver Exp Date:???01/18/26 IMR?green. Test results reviewed: Audio: Audiogram H-1, no asymmetric hearing loss, no significant threshhold shift Optometry:Meets vision standards for: Near and distant visual acuity, IOP, Depth perception, Phorias EKG:?Not Required PHYSICAL EXAM: HEENT:?Normal Valsalva:?Normal Joints:?Normal Spine:Normal Skin:Normal Neuro:?Normal Lungs:?Normal Heart:?Normal Abdomen:?Normal Comments: ?ANNUAL PERIODIC HEALTH ASSESSMENT I. STAFF RN INFORMATION AND DEMOGRAPHICS (SMI) 1. Last Name: CAMERON 2. First Name: HALLIE 3. Middle Name: ANIYAH 4. Assessment Date: 5. : 6. Age: 33 7. Gender: M 8. DoD ID Number: [id number] 9. Service Branch: [employer] 10. 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 Unit Name: [place] [employer] [place] 14. Duty Station/Location: [place] 15. UIC: [id number] 16. Is this your first Periodic Health Assessment (PHA)?: N 17. Are you enrolled in a secure messaging system with your health care provider?: 18. Current contact information: Preferred Method: Day Time Phone DSN: [id number] Day Time Phone: [phone] Night Time Phone: [phone] Email 1: [email or web address] Email 2: Address: [address] [place] [address] City: [place] State: [place] Zip Code: [address] 19. Point of contact who can always reach you: Name: Phyllis Cameron Phone 1: [phone] Phone 2: EMAIL: Address: City: State: Zip Code: II. DEPLOYMENT INFORMATION (DEP) 1. [ 0 ] Total number of deployments in the PAST 5 YEARS 4. [ N ] Are you going to deploy within the NEXT 120 DAYS? III. OCCUPATIONAL INFORMATION (OCC) 1 [ [id number] ] What is your occupational code 2. [...] easily startled? 6. d. [ No ] [place] numb or detached from others, activities, or your surroundings? 6. e. [ Not answered ] [place] guilt or unable to stop blaming yourself [...] like to schedule a visit with a screen print operator, mental health care provider, or a community [...] 8. [ None ] What prescriptions or evaa-uvb-adbencw medications are you CURRENTLY taking for health [...] had a cholesterol check by a health vehicle care specialist within the PAST 5 YEARS? 13.a. In [...] any health concerns? XI. SEPARATION AND SENIOR CARE 1. [ No ] Are you planning to separate or retire within the next year from Active Duty or [place] Duty (activated for greater than 30 continuous days) OR do you intend to file a claim for disability compensation with the [employer] Benefits Administration? PART B. RECORD REVIEW AND RECOMMENDATIONS I. RECORD REVIEWER INFORMATION 1. Last Name: DILMA 2. First Name: BIPIN 3. Middle Name: 4. Service Branch: [employer] 5. 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 EMAIL: [email or web address] 8. Facility: [facility] 9. Unit: [facility] 10. Address: [address] [place], [place] [address]Ang[place] 11. State: [place] 12. Zip Code: [address] 13. Phone: [phone] 14. Date Record Review: II. MEDICAL SCREENING 1. [ ] Date of education faculty member's most recent PHA 2. [ 6 feet 2 inches Date: ] education faculty member's most recently documented height 3. [ 185 pounds Date: ] education faculty member's most recently documented weight 4. [ 129/79 Date: ] education faculty member's most recently documented blood pressure reading 5. [ No ] Does the education faculty member have a history of abnormal blood pressure since their last PHA? 6. [ Yes ] Does the education faculty member have a laboratory test of sickle cell trait documented in their permanent medical record? 7. [ No Cholesterol Test Documented ] What is the date of the education faculty member's most recently documented cholesterol test? 9. [ No Active Medications Documented ] List of education faculty member's active medications listed in their permanent medical record 10. [ No ] Is there a discrepancy between the active medication record review and the education faculty member's self-reported list of medications? 11. [ No Outside Care Documented ] List documented significant care the education faculty member has received since their last PHA from a provider OUTSIDE the Health System 12. [ No ] Is there a discrepancy between the education faculty member's list of OUTSIDE care (from OT5), and the OUTSIDE care found in the record? 13. [ No Inside Care Documented ] List documented significant care the education faculty member has received since their last PHA from a provider INSIDE the Health System 15. [ Not Answered ] Confirm that vaccine exemptions are listed in the medical record for each vaccine listed III. OCCUPATION-SPECIFIC EXAMINATIONS 1. [ ] When was the education faculty member's most recently documented special operational duty physical exam? IV. FAMILY HISTORY AND LIFESTYLE 1. [ Yes ] Does the [id number] reflect the education faculty member's reported family history? VII. INDIVIDUAL MEDICAL READINESS 1. [ No ] Does the education faculty member have an Assignment Limitation Code C? 3. [ Classification: 2 ] Most recently documented dental exam 4. [ Yes ] Is the education faculty member current on all required immunizations in the immunization tracking system? 5. [ Yes ] Is the education faculty member current with Service-specific requirements for glasses and gas mask inserts? 6. Does the education faculty member have the following laboratory tests documented [...] need to be forwarded to the Health Comfort Filler completing PART C: Member is currently seeking professional help for anxiety and is awaiting an appointment. No deployment within the past five years. No VA rating. Member is not currently on a temporary profile. Member reports very good health. Member has never used tobacco products. Member is not currently taking prescription or zsys-beg-hwecdnz medications. Pain level: 0. No other significant findings. JLV reviewed. No other discrepancies found. Date Record Review Completed: PART C. HEALTH CARE PROVIDER I. MENTAL HEALTH ASSESSMENT (MHA) PROVIDER INFORMATION 1. Last Name: YANG 2. First Name: EDMUND 3. Middle Name: 4. Service Branch: [employer] 5. 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 Title: Physician (DO ROSHNI) 7. EMAIL: [email or web address] 8. [facility] 9. Unit: [address] [place], [place] [address] 10. Address: [address] [place] [address] 11. State: [place] 12. Zip Code: [address] 13. Phone: [phone] 14. Date HCP Review initiated: 1. Member [...] response: Provider's comments: member will talk with [facility] Medications: N/A Member's response: Provider's comments: 3. [...] Comments: 12. Address requests as reported on education faculty member questions 7 through 10 (in Active Directory Administrator Section . Behavioral Health): Request medical appointment: member will talk with [facility] Request information on stress/emotional/alcohol: member will talk with [facility] 13. Supplemental services recommended/information provided: [facility] Date MH Certified: III. PERIODIC HEALTH ASSESSMENT (PHA) PROVIDER INFORMATION 1. Last Name: SIMONE 2. First Name: EDMUND 3. Middle Name: 4. Service Branch: [employer] 5. 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 Title: Physician (DO ROSHNI) 7. EMAIL: [email or web address] 8. Facility: On license of [facility] 9. Unit: On license of [facility] 10. Address: [address] [place] [address] 11. State: [place] 12. Zip Code: [address] 13. Phone: [phone] 14. Date HCP Review initiated: IV. PERIODIC HEALTH ASSESSMENT PROVIDER RECOMMENDATIONS and REFERRALS 1. Provider concerns with this assessment: No issues or concerns identified V. SUMMARY AND COMMENTS 1. Additional information summarizing findings during the education faculty member assessment: 2. Provider Comments: stable gout, taking allopurinol . INDIVIDUAL MEDICAL READINESS DISPOSITION DETERMINATION JESÚS: Ready DEN: Ready IMM: Ready LAB: Ready ME: Ready IMR Status: Fully Medically Ready VII. SERVICE MEDICAL DEPLOYABILITY EVALUATION INDICATED Based on your review of all documentation, is the education faculty member medically deployable without limitations? Reference Nikki 6490.07 Yes (education faculty member DOES NOT currently have a medical condition that limits deployability) Date PHA Completed: END OF OX0829 REPORT Impression: Meets?FCIII?medical standards per HUNTER 48-123/MSD. [...] is able to complete duties required by AFNM. No acute complaints.NO: Fly?waiver. Initial Waiver Date: Waiver Exp Date: FILIBERTO?varun. Test results reviewed: Audio: Audiogram H-1, no asymmetric hearing loss, no significant threshhold shift Optometry:Meets vision standards for: Near and distant visual acuity, IOP, Depth perception, Phorias EKG:?_ PHYSICAL EXAM: HEENT:?Normal Valsalva:?Normal Joints:?Normal Spine:Normal Skin:Normal Neuro:?Normal Lungs:?Normal Heart:?Normal Abdomen:?Normal Comments: ANNUAL PERIODIC HEALTH ASSESSMENT I. STAFF RN INFORMATION AND DEMOGRAPHICS (SMI) 1. Last Name: CAMERON 2. First Name: HALLIE 3. Middle Name: ANIYAH 4. Assessment Date: 5. : 6. Age: 32 7. Gender: M 8. DoD ID Number: [id number] 9. Service Branch: [employer] 10. 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 Unit Name: [address] [place] [address] [place] 14. Duty Station/Location: [place] 15. C: [id number] 16. Is this your first Periodic Health Assessment (PHA)?: N 17. Are you enrolled in a secure messaging system with your health care provider?: 18. Current contact information: Preferred Method: Day Time Phone DSN: [id number] Day Time Phone: [phone] Night Time Phone: [phone] Email 1: [email or web address] Email 2: Address: [address] City: [place] State: [place] Zip Code: [address] 19. Point of contact who can always reach you: Name: Manolo Barnes Phone 1: [phone] Phone 2: EMAIL: Address: City: State: Zip Code: II. DEPLOYMENT INFORMATION (DEP) 1. [ 0 ] Total number of deployments in the PAST 5 YEARS 4. [ N ] Are you going to deploy within the NEXT 120 DAYS? III. OCCUPATIONAL INFORMATION (OCC) 1 [ 1P818M ] What is your occupational code 2. [...] easily startled? 6. d. [ No ] [place] numb or detached from others, activities, or your surroundings? 6. e. [ Not answered ] [place] guilt or unable to stop blaming yourself [...] like to schedule a visit with a screen print operator, mental health care provider, or a community [...] 8. [ Allopurinal ] What prescriptions or rwqk-ynv-bjvnycg medications are you CURRENTLY taking for health [...] had a cholesterol check by a health vehicle care specialist within the PAST 5 YEARS? 13.a. In [...] any health concerns? XI. SEPARATION AND SENIOR CARE 1. [ No ] Are you planning to separate or retire within the next year from Active Duty or [place] Duty (activated for greater than 30 continuous days) OR do you intend to file a claim for disability compensation with the Veterans Benefits Administration? PART B. RECORD REVIEW AND RECOMMENDATIONS I. RECORD REVIEWER INFORMATION 1. Last Name: DANE 2. First Name: DAYTON 3. Middle Name: FILIPPO 4. Service Branch: [employer] 5. Status: 6. 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 EMAIL: [email or web address] 8. Facility: On license of [facility] 9. Unit: On license of [facility] 10. Address: [address] [place] [address] 11. State: [place] 12. Zip Code: [address] 13. Phone: [phone] 14. Date Record Review: II. MEDICAL SCREENING 1. [ ] Date of education faculty member's most recent PHA 2. [ 6 feet 2 inches Date: ] education faculty member's most recently documented height 3. [ 182 pounds Date: ] education faculty member's most recently documented weight 4. [ 115/78 Date: ] education faculty member's most recently documented blood pressure reading 5. [ No ] Does the education faculty member have a history of abnormal blood pressure since their last PHA? 6. [ Yes ] Does the education faculty member have a laboratory test of sickle cell trait documented in their permanent medical record? 7. [ No Cholesterol Test Documented ] What is the date of the education faculty member's most recently documented cholesterol test? 9. [ Allopurinol 100mg ] List of education faculty member's active medications listed in their permanent medical record 10. [ No ] Is there a discrepancy between the active medication record review and the education faculty member's self-reported list of medications? 11. [ rheumatology for gout ] List documented significant care the education faculty member has received since their last PHA from a provider OUTSIDE the Health System 12. [ No ] Is there a discrepancy between the education faculty member's list of OUTSIDE care (from OTH5), and the OUTSIDE care found in the record? 13. [ No Inside Care Documented ] List documented significant care the education faculty member has received since their last PHA from a provider INSIDE the Health System 15. [ Not Answered ] Confirm that vaccine exemptions are listed in the medical record for each vaccine listed III. OCCUPATION-SPECIFIC EXAMINATIONS 1. [ ] When was the education faculty member's most recently documented special operational duty physical exam? IV. FAMILY HISTORY AND LIFESTYLE 1. [ Yes ] Does the [id number] reflect the education faculty member's reported family history? VII. INDIVIDUAL MEDICAL READINESS 1. [ No ] Does the education faculty member have an Assignment Limitation Code C? 3. [ Classification: 1 ] Most recently documented dental exam 4. [ No: Influenza, [place] Typhoid ] Is the education faculty member current on all required immunizations in the immunization tracking system? 5. [ Yes ] Is the education faculty member current with Service-specific requirements for glasses and gas mask inserts? 6. Does the education faculty member have the following laboratory tests documented [...] need to be forwarded to the Health Comfort Filler completing PART C: Flying waiver for gout- [...] 3. Middle Name: PUJA 4. Service Branch: [employer] 5. 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 Title: Physician (DO ROSHNI) 7. EMAIL: [email or web address] 8. Facility: [facility] 9. Unit: [facility] 10. Address: [address] [place] [address] 11. State: [place] 12. Zip Code: [address] [place] [address]. Phone: [phone] 14. Date HCP Review initiated: 1. Member [...] 3. Middle Name: PUJA 4. Service Branch: [employer] 5. 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 Title: Physician (DO ROSHNI) 7. EMAIL: [email or web address] 8. Facility: [facility] 9. Unit: [address] [place], [place] [address]CE [facility] 10. Address: [address] [place] [address] 11. State: [facility]. Zip Code: [address] 13. Phone: [phone] 14. Date HCP Review initiated: IV. PERIODIC HEALTH ASSESSMENT PROVIDER RECOMMENDATIONS and REFERRALS 1. Provider concerns with this assessment: No issues or concerns identified V. SUMMARY AND COMMENTS 1. Additional information summarizing findings during the education faculty member assessment: 2. Provider Comments: No issues or concerns identified. . INDIVIDUAL MEDICAL READINESS DISPOSITION DETERMINATION JESÚS: Ready DEN: Ready IMM: Ready LAB: Ready ME: Ready IMR Status: Fully Medically Ready VII. SERVICE MEDICAL DEPLOYABILITY EVALUATION INDICATED Based on your review of all documentation, is the education faculty member medically deployable without limitations? Reference Nikki 6490.07 Yes (education faculty member DOES NOT currently have a medical condition that limits deployability) Date PHA Completed: END OF [id number] REPORT Impression: Meets?FCIII?medical standards per HUNTER 48-123/MSD. Aeromedical Disposition: No DNIF. DD 2992?signed. No AF469 changes based on this encounter. [employer] Qualified. 02/13/2025 [id number] AMDS Functional Status Combined list of recent functional and cognitive assessments recorded at [employer] (VA[place] Functional Novinger Measurement (FIM) Scale: 1 = Total Assistance (Subject = 0% +), 2 = Maximal Assistance (Subject = 25% +), 3 = Moderate Assistance (Subject = 50% +), 4 = Minimal Assistance (Subject = 75% +), 5 = Supervision, 6 = Modified Novinger (Device), 7 = Complete Novinger (Timely, Safely). Assessment Date/Time Source Assessment Type Assessment Skill Assessment Score Assessment Details No data available for this section
[2025-02-13 15:32] LABS: Uric Acid 6.8 mg/dL (3.4-7.0)
== END 2025-02-13 13:18 | disposition home or self-care (01) ==
LOC: HO.HMGCLDS 13:17
PROVIDERS: PCP Nurse Practitioner Family; Visit Provider Nurse Practitioner Family
DX: M1A.0790 Idiopathic chronic gout, unspecified ankle and foot, without tophus (tophi) (principal)
CPT/HCPCS: 36415; 84550

== ENCOUNTER 2025-07-16 10:16 | Outpatient (AMB) | payer OTHER, SELFPAY ==
--- NOTE | 2025-07-16 10:20 | MHC.OFFVIS ---
Vital Signs 07/16/25 10:23 Height 6 ft 4 in Weight 186 lb 4.65 oz BMI 22.7 BP 130/80 Blood Pressure Location Lt brachial Position Sitting Pulse 92 Pulse Source Pulse Oximeter Pulse Oximetry (%) 97 Oxygen Delivery Method Room Air Intake Visit Reasons: Gout Intake Note: Patient presents for Gout follow up. Allergies No Known Allergies Allergy (Verified 07/16/25 10:22) Medication List - Last Reconciled 07/16/25 by Yenny Davis MD allopurinol 400 mg (2 x 200 mg) PO DAILY 30 days colchicine 0.6 mg PO DAILY 90 days HPI Comments Details: Patient is a 34-year-old male with non crystal proven non tophaceous gout here today for follow up Interval History: Patient last seen 05/14/[address] Leon - On Allopurinol 200mg daily - Ran out of allopurinol 200mg - No gout flares - Uric acid elevated, allopurinol increased to 400mg Today - On Allopurinol 400mg daily - Had a flare of his gout 04/2025, involving his left foot and ankle. Lasted about 1 week - Compliant with his allopurinol - Has been noticing more joint achyness involving his hands and feet. No AM stiffness - No family history of OA Rheumatologic History: Dx 07/2019 Allopurinol Initial history: This is a 32-year-old male with a past medical history of gout who presents for gout evaluation. He is also requesting a flight Waiver. He had his 1st attack of gout back in July of 2019 after ankle pain and swelling which was treated with steroids. His uric acid levels were found to be elevated. He was started on allopurinol in 2020 and since then has not had any gout flares. There is no known family history of gout (mother is adopted so not much known on that side). He denies any history of kidney stones. Today patient feels great and denies any joint pain or swelling. Current Rheumatology Medication(s): Allopurinol 400mg daily Colchicine 0.6mg daily prn PFSH Surgical History No pertinent past surgical history Social History Housing: Apartment Patient Tobacco Use Status: Never used Tobacco e-Cigarette/Vaping Use: Never Used Second Hand Smoke Exposure: No service: Yes Current occupational status: employed Current occupation: [employer] Current occupational exposures/hazards: Yes Cognitive needs: No Hearing needs: No Vision needs: No Review of Systems Const Details: Review of Systems Constitutional: Denies fever, chills, weight loss ENT: Denies vision changes, eye pain or eye redness, dental caries, dry mouth GI: Denies nausea, vomiting, diarrhea, abdominal pain, change in BM Pulm: Denies SOB, [place], hemoptysis, wheezing Cards: Denies chest pain, palpitations Skin: Denies Raynaud's, rash, nail changes, photosensitivity, MEDICAL ASSISTING PROGRAM DIRECTOR: Denies headaches, weakness, paresthesias, recurrent falls MSK: as per HPI All other systems reviewed and are unremarkable except noted above Physical Exam Exam Exam: Vital signs reviewed Physical Examination CONSTITUITIONAL Patient alert and cooperative. Well appearing and in no apparent painful distress MSK Hands Right Hand: Able to make a fist. No swelling or tenderness to palpation of the MCPs, PIPs or DIPs. Left Hand: Able to make a fist. No swelling or tenderness to palpation of the MCPs, PIPs or DIPs. Nodes noted in the bilateral 5th PIPs Wrists Right Wrist: Full ROM to flexion and extension. No swelling or TTP Left Wrist: Full ROM to flexion and extension. No swelling or TTP Elbows Right Elbow: Full ROM. No swelling or TTP. No TTP of the medial epicondyle. No TTP of the lateral epicondyle Left Elbow: Full ROM. No swelling or TTP. No TTP of the medial epicondyle. No TTP of the lateral epicondyle Shoulders Right shoulder: Full ROM. No swelling noted. No TTP of the AC joint. No TTP of the subacromial bursa. No TTP of the posterior shoulder Left shoulder: Full ROM. No swelling noted. No TTP of the AC joint. No TTP of the subacromial bursa. No TTP of the posterior shoulder Knees Right knee: Full ROM. No swelling noted. No TTP of the knee joint line. No TTP of pes anserine bursa Left knee: Full ROM. No swelling noted. No TTP of the knee joint line. No TTP of pes anserine bursa. Ankles Right ankle: Good ankle dorsiflexion and plantar flexion. No swelling. No TTP of the ankle joint Left ankle: Good ankle dorsiflexion and plantar flexion. No swelling. No TTP of the ankle joint Feet Right foot: Negative squeeze test Left foot: Negative squeeze test Tender points? No tenderness to palpation of the bilateral trapezius, supraspinatus, anterior costochondral junctions, bilateral suboccipital muscle insertions SKIN No rashes Vital Signs: BMI result Body Mass Index 22.7 Results Reviewed Results Reviewed: Laboratory Tests 01/05/25 02/13/25 14:44 13:20 WBC 7.0 RBC 5.40 Hgb 15.7 Hct 47.2 Plt Count 203 Sodium 140 Potassium 4.4 Chloride 107 Carbon Dioxide 27 BUN 11 Creatinine 0.98 Uric Acid 12.8 H 6.8 AST 26 ALT 19 Assessment & Plan Assessment & Plan (1) Gout: Comment: First attack of gout in 2018 which was treated with steroids. He was started on allopurinol in 2020 with no subsequent gout flares. Code(s): M10.9 - Gout, unspecified Category: Medical Qualifiers: Gout site: ankle Gout etiology: idiopathic Chronicity: chronic Laterality: unspecified laterality Presence of tophus: without tophus Qualified Code(s): M1A.0790 - Idiopathic chronic gout, unspecified ankle and foot, without tophus (tophi) Plan: #Non crystal proven non tophaceous gout Patient is a 34-year-old male with non crystal proven non tophaceous gout here today for follow up. Had a gout flare in April while being compliant with his allopurinol. Has also noticed increased achiness in his joints involving his hands, ankles and feet. 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 For now we will check x-rays and ensure that his uric acid is at goal Plan - Allopurinol 400mg daily - Colchicine 0.6mg prn for flares - Labs today: CBC, CMP, ESR, CRP, Uric Acid - XRs Hands, Feet and Snkles - RTC 1 year - Labs before visit: CBC, CMP, ESR, CRP, Uric Acid (2) Encounter for monitoring allopurinol therapy: Code(s): Z51.81 - Encounter for therapeutic drug level monitoring; Z79.899 - Other correction (current) drug therapy Plan: #Long-term Current Use of Allopurinol Risks and benefits of allopurinol discussed with patient Benefits include decreased gout flares, remission of gout and reduction of tophi Risks include allopurinol hypersensitivity syndrome which is a severe cutaneous adverse reaction associated with allopurinol use particularly in patients who are HLA B*5801 positive, increased transaminases, GI upset including diarrhea, nausea and vomiting, and other dermatologic manifestations. 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 XR hand RT min 3V Today M1A.0790 - Idiopathic chronic gout, unspecified ankle and foot, without tophus (tophi), Z51.81 - Encounter for therapeutic drug level monitoring, Z79.899 - Other correction (current) drug therapy XR hand LT min 3V Today M1A.0790 - Idiopathic chronic gout, unspecified ankle and foot, without tophus (tophi), Z51.81 - Encounter for therapeutic drug level monitoring, Z79.899 - 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 XR foot RT min 3V Today M1A.0790 - Idiopathic chronic gout, unspecified ankle and foot, without tophus (tophi), Z51.81 - Encounter for therapeutic drug level monitoring, Z79.899 - 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 XR foot LT min 3V Today M1A.0790 - Idiopathic chronic gout, unspecified ankle and foot, without tophus (tophi), Z51.81 - Encounter for therapeutic drug level monitoring, Z79.899 - 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
[2025-07-16 10:23] VITALS: BP 130/80; PULSE 92; O2SAT 97; BMI 22.7
--- OUTSIDE RECORDS SUMMARY | 2025-07-16 11:35 | XMS_ITS | Clinical Summary ---
Author Organization [facility] Address [address] [place] [phone] Phone Care Team Providers Care Maintenance Services Dispatcher Name Role Phone Pcp, Unknown Primary Care Provider Unavailabl e Allergies No known active allergies Medications indomethacin (INDOCIN) 25 MG capsule Take 1 capsule (25 mg total) by mouth 3 (three) times a day with meals. 30 capsule 08/18/2019 Active Social History Tobacco Use Types Packs/Day Years Used Date Smoking Tobacco: Never Alcohol Use Standard Drinks/Week Comments Never 0 (1 standard drink = 0.6 oz pur e alcohol) Education Answer Date Recorded Are you interested in more education? Not on linda e 02/15/2023 Are you concerned about learning? Not on file 02/15/2023 No 02/15/2023 No 02/15/2023 Digital Access Answer Date Recorded No 03/19/2023 No 03/19/2023 No 03/19/2023 Reliable internet access at home? Not on file 03/19/2023 Device with a working camera? Not on file Sex and Gender Information Value Date Recorded Sex Assigned at Male 08/18/2019 8:10 PM EDT Legal Sex Male 8:05 PM EDT Gender Identity Male 08/18/2019 8:10 PM EDT Sexual Orientation Not on file Last Filed Vital Signs Vital Sign Reading Time Taken Comments Blood Pressure 128/73 08/18/2019 10:20 PM EDT Pulse 82 08/18/2019 10:20 PM EDT Temperature 36.6 C (97.9 F) 08/18/2019 10:20 PM EDT Respiratory Rate 18 08/18/2019 10:20 PM EDT Oxygen Saturation 98% 08/18/2019 8:12 PM EDT Inhaled Oxygen Concentration - - Weight 90.7 kg (200 lb) 08/18/2019 8:12 PM EDT Height 193 cm (6' 4 ) 08/18/2019 8:12 PM EDT Body Mass Index 24.34 08/18/2019 8:12 PM EDT Plan of Treatment Not on file Medical Devices Not on file Insurance [facility] [place] [address] [facility] Care Teams Maintenance Services Dispatcher Relationship Specialty Start Date End Date Pcp, Unknown PCP - General 08/18/19 Additional Source Comments The information contained in this document represents components of the legal health record. It is not the complete legal health record.[facility]
== END 2025-07-16 10:44 | disposition home or self-care (01) ==
LOC: HO.RHES 10:17
PROVIDERS: PCP Nurse Practitioner Family; Visit Provider Student in an Organized Health Care Education/Training Program
DX: M1A.0790 Idiopathic chronic gout, unspecified ankle and foot, without tophus (tophi) (principal); Z51.81 Encounter for therapeutic drug level monitoring; Z79.899 Other long term (current) drug therapy
CPT/HCPCS: 99214; G2211

== ENCOUNTER → 2025-07-16 10:16 | Outpatient (BNVA) | payer OTHER, SELFPAY | PROVIDERS: PCP Nurse Practitioner Family; Visit Provider Student in an Organized Health Care Education/Training Program | DX: M1A.0790 Idiopathic chronic gout, unspecified ankle and foot, without tophus (tophi) (principal); Z51.81 Encounter for therapeutic drug level monitoring; Z79.899 Other long term (current) drug therapy | CPT/HCPCS: 99212 ==